=== PATIENT | male | born 1950 | race Caucasian/White ===

== ENCOUNTER 2016-08-02 07:15 | Outpatient (CLI) | payer OTHER | END 2016-08-02 07:16 | disposition home or self-care (01) | DX: R73.01 Impaired fasting glucose (principal); E78.5 Hyperlipidemia, unspecified; Z12.5 Encounter for screening for malignant neoplasm of prostate; R06.09 Other forms of dyspnea; F41.8 Other specified anxiety disorders; I10 Essential (primary) hypertension ==

== ENCOUNTER 2016-12-17 11:44 | Emergency (ER) | payer OTHER ==
--- NOTE | 2016-12-17 12:25 | ED Physician Documentation ---
PD HPI LOWER EXT INJURY - Stated complaint Stated Complaint: RT LEG SWELLING,PX - Chief complaint Chief Complaint: Wound - History obtained from History obtained from: Patient - History of Present Illness PD HPI LOW EXT INJURY LOCATION: Right, Lower leg Type of injury: Other (has abrasion, superficial lac about a week ago and was healing slowly, now with redness and some swelling to it for couple of days. Mild clear draiange.) Where injury occurred: Home Timing - duration: Days Timing - details: Gradual onset, Still present Worsened by: Palpating Associated symptoms: Swelling, Discolored (reddened). No: Weakness, Numbness Similar symptoms before: Has not had sx before Recently seen: Not recently seen Review of Systems Constitutional: denies: Fever, Chills GI: denies: Nausea, Vomiting PD PAST MEDICAL HISTORY - Past Medical History Cardiovascular: Hypertension Endocrine/Autoimmune: Type 2 diabetes Psych: Depression - Past Surgical History Past Surgical History: Yes - Present Medications Home Medications: Ambulatory Orders Medication Instructions Recorded Confirmed Aspirin [Aspir 81] 81 mg PO DAILY 07/26/13 12/17/16 Felodipine [Felodipine ER] 5 mg PO DAILY 07/26/13 12/17/16 Fluoxetine HCl [Sarafem] 20 mg PO DAILY 07/26/13 12/17/16 Metoprolol Tartrate 25 mg PO DAILY 07/26/13 12/17/16 Trazodone HCl 50 mg PO HS 07/26/13 12/17/16 Triamterene/Hydrochlorothiazid 0.5 each PO DAILY 07/26/13 12/17/16 [Triamterene-Hctz 37.5-25 mg Tb] Gabapentin 600 mg PO BID 06/30/16 12/17/16 Mupirocin 1 applic TP TID #15 oint...g. 12/17/16 Sulfamethox/Trimeth 800/160 1 each PO BID #14 tablet 12/17/16 [Bactrim Ds 800/160] - Allergies Allergies/Adverse Reactions: Allergies Allergy/AdvReac Type Severity Reaction Status Date / Time No Known Drug Allergies Allergy Verified 12/17/16 11:53 - Social History Does the pt smoke?: No Smoking Status: Never smoker Does the pt drink ETOH?: Yes Does the pt have substance abuse?: No - Immunizations Immunizations are current?: Yes PD ED PE NORMAL - Vitals Vital signs reviewed: Yes - General General: Alert and oriented X 3, No acute distress, Well developed/nourished - Derm Derm: Normal color, Warm and dry - Extremities Extremities: No edema, No calf tenderness / cord, Other (right lower leg anterolaterally with superficial lac/ulceration about 1 cm with redness and local swelling. Faint clear yellow drainage. No fluid under skin. ) - Neuro Neuro: No motor deficit, No sensory deficit Results - Vitals Vitals: Oxygen O2 Source Room air - Labs Labs: Microbiology 12/17/16 12:32 Wound Culture - Preliminary Leg - Right PD MEDICAL DECISION MAKING - ED course Complexity details: considered differential, d/w patient Departure - Departure Disposition: Home, Self Care Clinical Impression: Wound infection Condition: Stable Record reviewed to determine appropriate education?: Yes Instructions: ED Staph Infec Abx Tx Only Follow-Up: Nico Kinsey MD [Primary Care Provider] - Prescriptions: Sulfamethox/Trimeth 800/160 [Bactrim Ds 800/160] 1 each PO BID #14 tablet Mupirocin 1 applic TP TID #15 oint...g. Comments: Continue usual medications. Clean the wound 2-3 times a day with soap and water and apply mupirocin ointment topically. Bactrim twice daily for a week oral anabiotic. Tylenol or ibuprofen as needed for pain. Elevate and rest the leg when you are able. Activity is okay otherwise. Recheck if not improved over the next few days. Discharge Date/Time: 12/17/16 13:02
[2016-12-17] MEDS ORDERED: SULFAMETH/TRIMETH DS 800/160 MG TABLET PO STA (12:40)
[2016-12-17] MEDS ORDERED: MUPIROCIN 2% OINT 1 GM TOP STA (12:40)
[2016-12-17] MEDS ORDERED: MUPIROCIN 2% OINT 1 GM ONE (12:46)
[2016-12-17] MEDS ORDERED: SULFAMETH/TRIMETH DS 800/160 MG TABLET PO ONE (12:46)
[2016-12-17 13:08] VITALS: BP 124/75
== END 2016-12-17 13:02 | disposition home or self-care (01) ==
LOC: ED 11:44
DX: S81.812D Laceration without foreign body, left lower leg, subsequent encounter (principal); L08.9 Local infection of the skin and subcutaneous tissue, unspecified; X58.XXXD Exposure to other specified factors, subsequent encounter; I10 Essential (primary) hypertension; E11.9 Type 2 diabetes mellitus without complications; Z79.82 Long term (current) use of aspirin
CPT/HCPCS: 87070; 87205; 99283; A9270

== ENCOUNTER 2017-07-07 08:00 | Emergency (ER) | payer MEDICARE, BC ==
[2017-07-07] MEDS ORDERED: SODIUM CHLORIDE 0.9% 1,000 ML IV ONE (08:27)
[2017-07-07] MEDS ORDERED: ONDANSETRON 4 MG/2 ML VIAL IVP STA (08:27)
--- NOTE | 2017-07-07 08:29 | ED Physician Documentation ---
PD HPI NVD - Stated complaint Stated Complaint: VOMITING,DIARRHEA - Chief complaint Chief Complaint: Abd Pain - History obtained from History obtained from: Patient, Family - History of Present Illness Timing - onset: Enter time (0200), Last night Timing - duration: Hours Timing - details: Gradual onset, Still present Associated symptoms: Abdominal pain. No: Fever, Chest pain, Hematemesis Contributing factors: Diabetes Improved by: Laying still Similar symptoms before: Diagnosis (gastroenteritis) Recently seen: Not recently seen - Additonal information Additional information: 66-year-old male with type 2 diabetes went out to a restaurant yesterday evening at dinner with his and at about 2 AM he began to develop malaise and eventually began to vomit and have diarrhea. He has had multiple episodes of vomiting and has a bit of abdominal wall pain from the vomiting. He indicates that he was feeling entirely well prior to going out to eat and he also indicates that he has had diabetes and was treated at one point with medication he lost weight his A1c improved his been off of medicine and is now begin to gain some weight again. He does not do testing at home Review of Systems Constitutional: reports: Myalgias, Fatigue. denies: Fever, Chills Ears: denies: Ear pain Nose: denies: Rhinorrhea / runny nose, Congestion Throat: denies: Sore throat Cardiac: denies: Chest pain / pressure, Palpitations Respiratory: denies: Dyspnea, Cough GI: reports: Abdominal Pain, Nausea, Vomiting, Diarrhea : denies: Dysuria, Frequency Skin: denies: Rash Musculoskeletal: denies: Neck pain, Back pain, Extremity pain Neurologic: denies: Generalized weakness, Focal weakness, Numbness PD PAST MEDICAL HISTORY - Past Medical History Cardiovascular: Hypertension Endocrine/Autoimmune: Type 2 diabetes Psych: Depression - Past Surgical History Past Surgical History: Yes - Present Medications Home Medications: Ambulatory Orders Medication Instructions Recorded Confirmed Aspirin [Aspir 81] 81 mg PO DAILY 07/26/13 07/07/17 Felodipine [Felodipine ER] 5 mg PO DAILY 07/26/13 07/07/17 Fluoxetine HCl [Sarafem] 20 mg PO DAILY 07/26/13 07/07/17 Metoprolol Tartrate 25 mg PO DAILY 07/26/13 07/07/17 Trazodone HCl 50 mg PO HS 07/26/13 07/07/17 Triamterene/Hydrochlorothiazid 0.5 each PO DAILY 07/26/13 07/07/17 [Triamterene-Hctz 37.5-25 mg Tb] Gabapentin 600 mg PO BID 06/30/16 07/07/17 Mupirocin 1 applic TP TID #15 oint...g. 12/17/16 07/07/17 Ondansetron Odt [Zofran] 4 mg TL Q6H PRN #10 tablet 07/07/17 - Allergies Allergies/Adverse Reactions: Allergies Allergy/AdvReac Type Severity Reaction Status Date / Time No Known Drug Allergies Allergy Verified 07/07/17 08:07 - Social History Does the pt smoke?: No Smoking Status: Never smoker Does the pt drink ETOH?: Yes Does the pt have substance abuse?: No - Immunizations Immunizations are current?: Yes PD ED PE NORMAL - Vitals Vital signs reviewed: Yes (Hypertensive) - General General: Alert and oriented X 3, Well developed/nourished, Other (carroter tone of feeling ill) - HEENT HEENT: Atraumatic, PERRL, EOMI, Other (parched mucous membranes. ) - Neck Neck: Supple, no meningeal sign, No bony TTP - Cardiac Cardiac: RRR, No murmur - Respiratory Respiratory: No respiratory distress, Clear bilaterally - Abdomen Abdomen: Normal bowel sounds, Soft, Other (doughy and non-tender.) - Back Back: No CVA TTP, No spinal TTP - Derm Derm: Normal color, Warm and dry, No rash - Extremities Extremities: No deformity, No edema - Neuro Neuro: No motor deficit, No sensory deficit Eye Opening: Spontaneous Motor: Obeys Commands Verbal: Oriented GCS Score: 15 - Psych Psych: Normal mood, Normal affect Results - Vitals Vitals: Vital Signs - 24 hr 07/07/17 07/07/17 08:04 09:58 Temperature 36.6 C 37.4 C Heart Rate 91 88 Respiratory 18 16 Rate Blood Pressure 151/94 H 132/80 H O2 Saturation 95 94 Oxygen O2 Source Room air - Labs Labs: Laboratory Tests 07/07/17 07/07/17 07/07/17 08:30 08:30 08:30 WBC 13.5 H RBC 5.20 Hgb 16.4 Hct 47.2 MCV 90.8 MCH 31.5 H MCHC 34.7 RDW 12.6 Plt Count 158 MPV 8.7 Neut # 12.0 H Lymph # 0.9 L [place] # 0.6 Eos # 0.1 Baso # 0.0 Absolute Nucleated RBC 0.00 Nucleated RBC % 0.0 Sodium 138 Potassium 3.9 Chloride 100 L Carbon Dioxide 24 Anion Gap 14.0 H BUN 25 H Creatinine 1.0 Estimated GFR (MDRD) 75 L Glucose 217 H Lactic Acid Calcium 8.6 Total Bilirubin 0.7 AST 42 ALT 60 Alkaline Phosphatase 60 Troponin I < 0.04 Total Protein 7.7 Albumin 4.2 Globulin 3.5 Albumin/Globulin Ratio 1.2 Lipase 30 07/07/17 08:30 WBC RBC Hgb Hct MCV MCH MCHC RDW Plt Count MPV Neut # Lymph # [place] # Eos # Baso # Absolute Nucleated RBC Nucleated RBC % Sodium Potassium Chloride Carbon Dioxide Anion Gap BUN Creatinine Estimated GFR (MDRD) Glucose Lactic Acid 1.9 Calcium Total Bilirubin AST ALT Alkaline Phosphatase Troponin I Total Protein Albumin Globulin Albumin/Globulin Ratio Lipase Procedures - IVC sono (time) 0830 Bedside IVC sono: IVC measures (cm) (1.12), IVC collapsed c insp (cm) (complete) , Dehydration (est. 1.5 liters down) PD MEDICAL DECISION MAKING - ED course Complexity details: reviewed old records, reviewed results, re-evaluated patient , considered differential, d/w patient, d/w family ED course: 66-year-old diabetic male comes to the emergency department with acute gastroenteritis possibly related to food exposure appears moderately dehydrated on interrogation of the inferior vena cava and has elevated blood glucose. IV saline and Zofran are begun Departure - Departure Disposition: 01 Home, Self Care Clinical Impression: Gastroenteritis Condition: Stable Instructions: ED Food Poison Or Gastroenteritis Follow-Up: Nico Kinsey MD [Primary Care Provider] - Prescriptions: Ondansetron Odt [Zofran] 4 mg TL Q6H PRN #10 tablet PRN Reason: Nausea / Vomiting
[2017-07-07 08:42] LABS: BASOPHILS % (AUTO) 0.1 %; EOSINOPHILS # (AUTO) 0.1 10^3/uL (0.0-0.7); EOSINOPHILS % (AUTO) 0.5 %; HCT - HEMATOCRIT 47.2 % (42.0-52.0); HGB - HEMOGLOBIN 16.4 g/dL (14.0-18.0); LYMPHOCYTES # (AUTO) 0.9 10^3/uL (1.5-3.5); LYMPHOCYTES % (AUTO) 6.5 %; MEAN CORPUSCULAR HEMOGLOBIN 31.5 pg (27.0-31.0); MEAN CORPUSCULAR HGB CONC 34.7 g/dL (32.0-36.0); MEAN CORPUSCULAR VOLUME 90.8 fL (80.0-94.0); MEAN PLATELET VOLUME 8.7 fL (7.4-11.4); MONOCYTES # (AUTO) 0.6 10^3/uL (0.0-1.0); MONOCYTES % (AUTO) 4.3 %; NEUTROPHILS % (AUTO) 88.6 %; RED CELL DISTRIBUTION WIDTH 12.6 % (12.0-15.0); UNCORRECTED WHITE BLOOD COUNT 13.5 x10^3/uL; WHITE BLOOD COUNT 13.5 x10^3/uL (4.8-10.8)
[2017-07-07 08:55] LABS: ALBUMIN/GLOBULIN RATIO 1.2 (1.0-2.2); BILIRUBIN,TOTAL 0.7 mg/dL (0.2-1.0); CALCIUM 8.6 mg/dL (8.5-10.3); POTASSIUM 3.9 mmol/L (3.5-5.0); TOTAL PROTEIN 7.7 g/dL (6.7-8.2)
[2017-07-07 09:59] VITALS: BP 132/80
[2017-07-07] MEDS ORDERED: MAG HYDROX/AL HYDROX/SIMETH 30 ML UDC PO STA (10:22)
[2017-07-07 10:50] LABS: BILIRUBIN,URINE NEGATIVE (NEGATIVE)
[2017-07-07 10:51] LABS: UA CHARGE (STRIP ONLY) YES; UR CULTURE IF IND NOT INDICATED
== END 2017-07-07 10:32 | disposition home or self-care (01) ==
LOC: ED 08:00
DX: K52.9 Noninfective gastroenteritis and colitis, unspecified (principal); E11.9 Type 2 diabetes mellitus without complications; I10 Essential (primary) hypertension; Z79.82 Long term (current) use of aspirin
CPT/HCPCS: 36415; 80053; 81003; 83605; 83690; 84484; 85025; 96361; 96374; 99283; 99284; A9270; 81001; 87086

== ENCOUNTER 2017-09-06 08:00 | Outpatient (CLI) | payer MEDICARE, BC ==
[2017-09-06 13:45] LABS: BASOPHILS % (AUTO) 0.6 %; EOSINOPHILS # (AUTO) 0.1 10^3/uL (0.0-0.7); EOSINOPHILS % (AUTO) 1.5 %; HGB - HEMOGLOBIN 15.9 g/dL (14.0-18.0); LYMPHOCYTES # (AUTO) 2.1 10^3/uL (1.5-3.5); LYMPHOCYTES % (AUTO) 32.7 %; MEAN CORPUSCULAR HEMOGLOBIN 31.8 pg (27.0-31.0); MEAN CORPUSCULAR HGB CONC 34.9 g/dL (32.0-36.0); MEAN CORPUSCULAR VOLUME 91.2 fL (80.0-94.0); MEAN PLATELET VOLUME 8.7 fL (7.4-11.4); MONOCYTES # (AUTO) 0.7 10^3/uL (0.0-1.0); MONOCYTES % (AUTO) 10.8 %; NEUTROPHILS # (AUTO) 3.4 10^3/uL (1.5-6.6); NEUTROPHILS % (AUTO) 54.4 %; PLT - PLATELET COUNT 151 10^3/uL (130-450); RED CELL DISTRIBUTION WIDTH 13.2 % (12.0-15.0); WHITE BLOOD COUNT 6.3 x10^3/uL (4.8-10.8)
[2017-09-06 13:57] LABS: ALBUMIN 4.2 g/dL (3.2-5.5); ALBUMIN/GLOBULIN RATIO 1.4 (1.0-2.2); ALKALINE PHOSPHATASE 58 IU/L (42-121); ALT ALANINE AMINOTRANSFERASE 68 IU/L (10-60); AST ASPARTATE AMINOTRANSFERASE 42 IU/L (10-42); BILIRUBIN,TOTAL 0.9 mg/dL (0.2-1.0); BUN - BLOOD UREA NITROGEN 18 mg/dL (6-20); CARBON DIOXIDE - CO2 25 mmol/L (21-32); CHLORIDE 98 mmol/L (101-111); CHOL/HDL RATIO 4.7 (<5.0); CHOLESTEROL 184 mg/dL; GFR - MDRD 75 (>89); GLUCOSE 149 mg/dL (70-100); HDL CHOLESTEROL 39 mg/dL; LDL CHOLESTEROL,CALCULATED 115 mg/dL; LDL/HDL RATIO 2.9 (<3.6); SODIUM 134 mmol/L (135-145); TOTAL PROTEIN 7.3 g/dL (6.7-8.2); VLDL CHOLESTEROL 30 mg/dL
[2017-09-06 14:10] LABS: HB2 TOTAL 17.9 g/dL; HEMOGLOBIN A1C 1.02 g/dL; HEMOGLOBIN A1C % 7.4 % (4.6-6.2)
== END 2017-09-06 08:01 | disposition home or self-care (01) ==
LOC: LAB.WCP 08:00
PROVIDERS: ATTEND Family Medicine
DX: G62.9 Polyneuropathy, unspecified (principal); R73.01 Impaired fasting glucose; E78.5 Hyperlipidemia, unspecified; Z12.5 Encounter for screening for malignant neoplasm of prostate; F41.8 Other specified anxiety disorders
CPT/HCPCS: 36415; 80053; 80061; 82043; 83036; 85025; G0103; 83721; 84153

== ENCOUNTER 2018-01-17 08:00 | Outpatient (CLI) | payer MEDICARE, BC ==
[2018-01-17 12:41] LABS: ALBUMIN 4.1 g/dL (3.2-5.5); ALBUMIN/GLOBULIN RATIO 1.3 (1.0-2.2); BILIRUBIN,TOTAL 0.7 mg/dL (0.2-1.0); CALCIUM 8.7 mg/dL (8.5-10.3); CREATININE 1.1 mg/dL (0.6-1.2); TOTAL PROTEIN 7.3 g/dL (6.7-8.2)
[2018-01-17 13:27] LABS: HB2 TOTAL 17.5 g/dL; HEMOGLOBIN A1C 0.87 g/dL; HEMOGLOBIN A1C % 6.7 % (4.6-6.2)
== END 2018-01-17 23:59 | disposition home or self-care (01) ==
LOC: LAB.WCP 08:00
PROVIDERS: ATTEND Family Medicine
DX: E11.9 Type 2 diabetes mellitus without complications (principal); I10 Essential (primary) hypertension
CPT/HCPCS: 36415; 80053; 83036

== ENCOUNTER 2018-03-17 09:48 | Outpatient (CLI) | payer MEDICARE, BC ==
--- NOTE | 2018-03-17 21:40 | MRI Report ---
Reason: NUMBNESS OF FACE, PARESTHESIA Procedure Date: 03/17/2018 Accession Number: [id number] / [id number] Procedure: MRI - Brain W/O CPT Code: FULL RESULT: EXAM: MRI BRAIN WITHOUT CONTRAST EXAM DATE: 03/17/2018 11:11 AM. CLINICAL HISTORY: Numbness of the face COMPARISON: None. TECHNIQUE: Multiplanar, multisequence T1-weighted and fluid-sensitive MR sequences of the brain were performed. Sequences optimized for routine evaluation. Other: This study was protocoled on site using the institution's protocol.. IV Contrast: None. FINDINGS: The diffusion-weighted images are normal. There is no evidence of acute or subacute cerebral infarction. The corpus callosum is of normal size and configuration. The pituitary and sella are normal. The craniocervical junction is normal. The cerebral vascular flow voids are patent. The FLAIR images demonstrate multiple punctate and confluent areas of T2 hyperintensity within the subcortical, deep, and periventricular white matter. This is consistent with a mild to moderate degree of chronic small vessel ischemia. There is enlargement of the lateral ventricles and the third ventricle but not out of proportion to the enlargement of the cerebral sulci. This is consistent with a mild degree of generalized volume loss. The T2* sequence is normal. There is no evidence of subacute or chronic hemorrhage. Cerebral volume and ventricular size are normal. IMPRESSION: 1. There is no evidence of acute or subacute cerebral infarction. 2. There is mild to moderate degree of chronic small vessel ischemia and mild degree of generalized volume loss. 3. There is no evidence of brain mass.
== END 2018-03-17 09:49 | disposition home or self-care (01) ==
LOC: DI 09:48
PROVIDERS: ATTEND Family Medicine
DX: R20.0 Anesthesia of skin (principal); R20.2 Paresthesia of skin
CPT/HCPCS: 70551

== ENCOUNTER 2018-08-22 08:00 | Outpatient (CLI) | payer MEDICARE, BC ==
[2018-08-22 13:26] LABS: BASOPHILS % (AUTO) 0.4 %; EOSINOPHILS # (AUTO) 0.1 10^3/uL (0.0-0.7); EOSINOPHILS % (AUTO) 1.3 %; LYMPHOCYTES # (AUTO) 1.9 10^3/uL (1.5-3.5); LYMPHOCYTES % (AUTO) 32.8 %; MEAN CORPUSCULAR HEMOGLOBIN 31.8 pg (27.0-31.0); MEAN CORPUSCULAR HGB CONC 34.4 g/dL (32.0-36.0); MEAN CORPUSCULAR VOLUME 92.4 fL (80.0-94.0); MONOCYTES # (AUTO) 0.5 10^3/uL (0.0-1.0); MONOCYTES % (AUTO) 8.8 %; NEUTROPHILS # (AUTO) 3.3 10^3/uL (1.5-6.6); NEUTROPHILS % (AUTO) 56.7 %; PLT - PLATELET COUNT 186 10^3/uL (130-450); RED BLOOD COUNT 5.03 10^6/uL (4.70-6.10); RED CELL DISTRIBUTION WIDTH 12.7 % (12.0-15.0); WHITE BLOOD COUNT 5.9 x10^3/uL (4.8-10.8)
[2018-08-22 13:54] LABS: ALBUMIN 4.1 g/dL (3.2-5.5); ALBUMIN/GLOBULIN RATIO 1.4 (1.0-2.2); BILIRUBIN,TOTAL 0.8 mg/dL (0.2-1.0); CALCIUM 8.9 mg/dL (8.5-10.3); CREATININE 0.8 mg/dL (0.6-1.2); TOTAL PROTEIN 7.1 g/dL (6.7-8.2)
[2018-08-22 14:54] LABS: HB2 TOTAL 17.2 g/dL; HEMOGLOBIN A1C 0.85 g/dL; HEMOGLOBIN A1C % 6.7 % (4.6-6.2)
== END 2018-08-22 23:59 | disposition home or self-care (01) ==
LOC: LAB.WCP 08:00
PROVIDERS: ATTEND Family Medicine
DX: I10 Essential (primary) hypertension (principal); E11.9 Type 2 diabetes mellitus without complications
CPT/HCPCS: 36415; 80053; 82043; 83036; 85025

== ENCOUNTER 2019-01-28 15:05 | Outpatient (CLI) | payer MEDICARE, BC ==
--- NOTE | 2019-01-29 11:38 | MRI Report ---
Reason: DERANGEMENT, INTERNAL, KNEE NOS Procedure Date: 01/28/2019 Accession Number: [id number] / [id number] Procedure: MRI - Knee LT W/O CPT Code: FULL RESULT: EXAM: LEFT KNEE MRI WITHOUT CONTRAST EXAM DATE: 01/28/2019 03:53 PM. CLINICAL HISTORY: Derangement, internal, knee NOS. History of arthroscopic knee surgery 2007. No reinjury. COMPARISON: KNEE 3 VIEW LT 01/21/2019 3:59 PM. TECHNIQUE: Multiplanar, multisequence T1-weighted and fluid-sensitive sequences of the knee without contrast. Other: None. FINDINGS: Bones: No fractures or subluxations. No marrow edema. No bone lesions. Small spur medial tibial plateau. Small spur on lateral aspect of medial femoral condyle intercondylar fossa. Articular Cartilage: Moderate focal chondromalacia trochlear groove. Moderate chondromalacia medial femoral condyle. Medial Meniscus: Diminutive medial meniscus body consistent with history of prior arthroscopic surgery. The medial meniscus is without intrameniscal fluid signal to suggest re-tear. Lateral Meniscus: The lateral meniscus is intact. Cruciate Ligaments: The anterior and posterior cruciate ligaments are intact. Collateral Ligaments: The medial collateral and lateral collateral ligamentous structures are intact. Tendons: The quadriceps, patellar, semimembranosus, and popliteus tendons are unremarkable. Musculature: No edema or fatty atrophy. Other: No effusion. No popliteal cyst. No loose bodies. The medial and lateral retinacula are intact. Mild prepatellar subcutaneous edema. Anterior lateral prepatellar focal subcutaneous fluid collection 1.5 x 0.5 cm in transverse dimension and 1 cm in height consistent with small focal prepatellar bursitis. Susceptibility effect soft tissue anterior lateral left knee at the lateral margin of the patellar tendon likely secondary to prior injury with no corresponding metallic foreign body identified on the lateral x-ray left knee 01/21/2019. IMPRESSION: 1. Negative for meniscus tear or internal derangement. 2. Moderate chondromalacia trochlear groove and moderate chondromalacia medial femoral condyle. RADIA
== END 2019-01-28 15:06 | disposition home or self-care (01) ==
LOC: DI 15:05
PROVIDERS: ATTEND Family Medicine
DX: M94.262 Chondromalacia, left knee (principal); M23.90 Unspecified internal derangement of unspecified knee

== ENCOUNTER 2019-08-05 14:45 | Emergency (ER) | payer MEDICARE, BC ==
[2019-08-05] MEDS ORDERED: HYDROcod/ACETAM 5/325 MG TABLET PO STA (15:43)
[2019-08-05] MEDS ORDERED: BUFFERED LIDOCAINE 10 ML SYRINGE SUBQ STA (15:43)
--- NOTE | 2019-08-05 15:46 | ED Physician Documentation ---
PD HPI HEAD INJURY - Stated complaint Stated Complaint: CHIN LAC - Chief complaint Chief Complaint: Laceration - History obtained from History obtained from: Patient - History of Present Illness Mechanism of head injury: Blow (He was working at home and had a 2 x 4 on a table saw and it kicked back and hit him in the chin and he has moderate to severe pain of the mandible and a laceration there. Tetanus is up-to-date. No headache or loss of consciousness.) Review of Systems Constitutional: reports: Reviewed and negative Nose: denies: Rhinorrhea / runny nose, Congestion Throat: denies: Sore throat Cardiac: denies: Chest pain / pressure, Palpitations PD PAST MEDICAL HISTORY - Past Medical History Past Medical History: Yes Cardiovascular: Hypertension, High cholesterol Respiratory: None Endocrine/Autoimmune: Type 2 diabetes GI: None : None Psych: Depression Musculoskeletal: None Other Past Medical History: Neuropathy in left lower extremity - Past Surgical History Past Surgical History: Yes - Present Medications Home Medications: Ambulatory Orders Medication Instructions Recorded Confirmed Aspirin [Aspir 81] 81 mg PO DAILY 07/26/13 08/05/19 Felodipine [Felodipine ER] 5 mg PO DAILY 07/26/13 08/05/19 Fluoxetine HCl [Sarafem] 20 mg PO DAILY 07/26/13 08/05/19 Metoprolol Tartrate 10 - 12.5 mg PO DAILY 07/26/13 08/05/19 Trazodone HCl 50 mg PO HS 07/26/13 08/05/19 Triamterene/Hydrochlorothiazid 0.5 each PO DAILY 07/26/13 07/07/17 [Triamterene-Hctz 37.5-25 mg Tb] Gabapentin 300 mg PO DAILY 06/30/16 08/05/19 Mupirocin 1 applic TP TID #15 oint...g. 12/17/16 07/07/17 Ondansetron Odt [Zofran] 4 mg TL Q6H PRN #10 tablet 07/07/17 Aspirin [Aspirin EC] 81 mg PO DAILY 08/05/19 08/05/19 Hydrocodone/Acetaminophen 1 - 2 each PO Q6H PRN #14 tablet 08/05/19 [Hydrocodon-Acetaminophen 5-325] Pravastatin [Pravachol] 20 mg PO DAILY 01/15/20 01/15/20 metFORMIN [Glucophage] 500 mg PO DAILY 08/05/19 08/05/19 - Allergies Allergies/Adverse Reactions: Allergies Allergy/AdvReac Type Severity Reaction Status Date / Time No Known Drug Allergies Allergy Verified 07/07/17 08:07 - Social History Does the pt smoke?: No Smoking Status: Never smoker Does the pt drink ETOH?: Yes Does the pt have substance abuse?: No - Immunizations Immunizations are current?: Yes PD ED PE NORMAL - Vitals Vital signs reviewed: Yes - General General: Alert and oriented X 3, No acute distress - HEENT HEENT: PERRL, EOMI, Other (There is a oblique laceration in the submental area to the left of midline measuring 3 cm. The mandible is tender especially on the right up to the TMJ. There is no deformity. He has pain with opening closing of the mouth but does not seem to have too much in the way of limited range of motion.) - Neck Neck: Supple, no meningeal sign, No bony TTP - Neuro Neuro: Alert and oriented X 3, No motor deficit, No sensory deficit, Normal speech - Psych Psych: Normal mood, Normal affect Results - Vitals Vitals: Vital Signs - 24 hr 08/05/19 15:22 Temperature 37.1 C Heart Rate 63 Respiratory 18 Rate Blood Pressure 113/69 O2 Saturation 95 Oxygen O2 Source Room air - Rads (name of study) facial bones CT Radiology: EMP read contemporaneously (no frx) Procedures - Laceration (location) Chin Length in cm: 3 Wound type: Linear Neurovascular status: Sensory intact, Motor intact, Vascular intact Anesthesia: Lidocaine 1%, With bicarb Wound Preparation: Irrigated copiously NS Skin layer closure: Nylon, Interrupted, Size #-0 - enter number (4-0), Sutures - enter # (6) Other: Tetanus UTD Complexity: Simple Departure - Departure Disposition: 01 Home, Self Care Clinical Impression: Laceration Facial contusion Qualifiers: Encounter type: initial encounter Qualified Code(s): S00.83XA - Contusion of other part of head, initial encounter Condition: Good Record reviewed to determine appropriate education?: Yes Instructions: ED Laceration Facial Sutr Tape Prescriptions: Hydrocodone/Acetaminophen [Hydrocodon-Acetaminophen 5-325] 1 - 2 each PO Q6H PRN #14 tablet PRN Reason: pain Comments: Come back for any signs of infection which would include: Redness, swelling, drainage, increased pain, or fevers. You can wash it soap and water. Keep it covered and moist with bacitracin ointment which is available over the counter; avoid neosporin. Follow-up with your physician in 7-10 days for suture removal.
--- NOTE | 2019-08-05 16:57 | CT Report ---
Reason: mandibular injury Procedure Date: 08/05/2019 Accession Number: [id number] / [id number] Procedure: CT - MAXILLOFACIAL WO CPT Code: Final Report FULL RESULT: EXAM: CT MAXILLOFACIAL WITHOUT CONTRAST EXAM DATE: 08/05/2019 04:01 PM. CLINICAL HISTORY: Mandibular injury. COMPARISONS: HEAD W/O 07/26/2013 11:00 AM. TECHNIQUE: Thin-section axial images were acquired of the face without contrast. Post-processing: Coronal and sagittal reformats. Other: None. In accordance with CT protocol optimization, one or more of the following dose reduction techniques were utilized for this exam: automated exposure control, adjustment of mA and/or KV based on patient size, or use of iterative reconstructive technique. FINDINGS: Soft Tissue: There is a laceration injury with subcutaneous edema of the left chin. There several bubbles of soft tissue gas. There is no radiopaque foreign body. No lymphadenopathy. Orbits: Symmetric and unremarkable. Bones: No fracture or destructive bony abnormality. There is degenerative disk disease of the cervical spine greatest at C5-C6. Temporomandibular Joints: Temporomandibular joint appears in satisfactory alignment. Sinuses: There is bilateral maxillary sinus mucosal thickening. The frontal, ethmoid and sphenoid sinuses are clear. The mastoid sinuses are clear. Other: None. IMPRESSION: 1. Laceration injury with subcutaneous edema of the left chin. 2. No acute fracture. RADIA
[2019-08-05 17:07] VITALS: BP 117/65
== END 2019-08-05 17:16 | disposition home or self-care (01) ==
LOC: ED 14:45
DX: S01.81XA Laceration without foreign body of other part of head, initial encounter (principal); S00.83XA Contusion of other part of head, initial encounter; W20.8XXA Other cause of strike by thrown, projected or falling object, initial encounter; Y93.H3 Activity, building and construction; Y92.009 Unspecified place in unspecified non-institutional (private) residence as the place of occurrence of the external cause; I10 Essential (primary) hypertension; E11.42 Type 2 diabetes mellitus with diabetic polyneuropathy; Z79.84 Long term (current) use of oral hypoglycemic drugs; Z79.82 Long term (current) use of aspirin
CPT/HCPCS: 12013; 70486; 99284; A9270

== ENCOUNTER 2020-03-29 07:23 | Outpatient (CLI) | payer MEDICARE, BC ==
[2020-03-29 12:47] LABS: BASOPHILS # (AUTO) 0.1 10^3/uL (0.0-0.1); BASOPHILS % (AUTO) 1.1 %; EOSINOPHILS # (AUTO) 0.5 10^3/uL (0.0-0.7); EOSINOPHILS % (AUTO) 7.1 %; HGB - HEMOGLOBIN 16.4 g/dL (14.0-18.0); LYMPHOCYTES # (AUTO) 1.8 10^3/uL (1.5-3.5); LYMPHOCYTES % (AUTO) 28.1 %; MEAN CORPUSCULAR HEMOGLOBIN 32.7 pg (27.0-31.0); MEAN CORPUSCULAR VOLUME 93.2 fL (80.0-94.0); MEAN PLATELET VOLUME 10.9 fL (7.4-11.4); MONOCYTES # (AUTO) 0.5 10^3/uL (0.0-1.0); MONOCYTES % (AUTO) 8.2 %; NEUTROPHILS # (AUTO) 3.5 10^3/uL (1.5-6.6); PLT - PLATELET COUNT 198 10^3/uL (130-450); RED BLOOD COUNT 5.02 10^6/uL (4.70-6.10); RED CELL DISTRIBUTION WIDTH 12.1 % (12.0-15.0); WHITE BLOOD COUNT 6.4 x10^3/uL (4.8-10.8)
[2020-03-29 13:23] LABS: ALBUMIN 4.1 g/dL (3.2-5.5); ALBUMIN/GLOBULIN RATIO 1.4 (1.0-2.2); ALKALINE PHOSPHATASE 67 IU/L (42-121); ALT ALANINE AMINOTRANSFERASE 44 IU/L (10-60); AST ASPARTATE AMINOTRANSFERASE 23 IU/L (10-42); BILIRUBIN,TOTAL 0.9 mg/dL (0.2-1.0); BUN - BLOOD UREA NITROGEN 16 mg/dL (6-20); CALCIUM 8.9 mg/dL (8.5-10.3); CARBON DIOXIDE - CO2 28 mmol/L (21-32); CHLORIDE 97 mmol/L (101-111); CHOL/HDL RATIO 4.2 (<5.0); CHOLESTEROL 172 mg/dL; CREATININE 0.8 mg/dL (0.6-1.2); GLUCOSE 309 mg/dL (70-100); HDL CHOLESTEROL 41 mg/dL; LDL CHOLESTEROL,CALCULATED 104 mg/dL; LDL/HDL RATIO 2.5 (<3.6); SODIUM 134 mmol/L (135-145); TOTAL PROTEIN 7.1 g/dL (6.7-8.2); VLDL CHOLESTEROL 27 mg/dL
[2020-03-29 13:33] LABS: HEMOGLOBIN A1c% 11.8 % (4.27-6.07)
[2020-03-29 13:39] LABS: MICROALBUM/CREATININE RATIO,UR 10.6 ug/mg (<30.0); MICROALBUMIN,URINE 3.2 mg/dL (0-300.0)
== END 2020-03-29 07:24 | disposition home or self-care (01) ==
LOC: LAB.WCP 07:23
PROVIDERS: ATTEND Family Medicine
DX: E78.5 Hyperlipidemia, unspecified (principal); E11.9 Type 2 diabetes mellitus without complications; Z12.5 Encounter for screening for malignant neoplasm of prostate; I10 Essential (primary) hypertension
CPT/HCPCS: 36415; 80053; 80061; 82043; 82570; 83036; 84443; 85025; G0103; 83721; 84153

== ENCOUNTER 2020-04-13 15:38 | Emergency (ER) | payer MEDICARE, BC ==
[2020-04-13 15:45] VITALS: BP 130/72
[2020-04-13] MEDS ORDERED: KETOROLAC 60 MG/2 ML VIAL IM STA (16:01)
--- NOTE | 2020-04-13 16:04 | ED Physician Documentation ---
PD HPI BACK PAIN - Stated complaint Stated Complaint: BACK AND LEG PAIN - Chief complaint Chief Complaint: Back Pain - History obtained from History obtained from: Patient - Additional information Additional information: 69-year-old gentleman with history of back pain presents with worse back pain over last couple of months especially bad over the last 2 days. It is in the left low back and radiates towards the left hip. It is mild to moderate at rest but severe with any motion especially twisting. He has a history of sciatica and herniated disks and this is similar. No fevers, no saddle anesthesia or incontinence. Pain radiates into the left leg but does not have any new numbness in the left leg noting that he has chronic neuropathy. Is on gabapentin currently at a dose of 300 mg twice a day and tried a couple of oxycodone which was incompletely helpful. Review of Systems Constitutional: reports: Reviewed and negative Throat: reports: Reviewed and negative Cardiac: reports: Reviewed and negative Respiratory: reports: Reviewed and negative PD PAST MEDICAL HISTORY - Past Medical History Past Medical History: Yes Cardiovascular: Hypertension, High cholesterol Respiratory: None Endocrine/Autoimmune: Type 2 diabetes GI: None : None Psych: Depression Musculoskeletal: None - Past Surgical History Past Surgical History: Yes - Present Medications Home Medications: Ambulatory Orders Medication Instructions Recorded Confirmed Aspirin [Aspir 81] 81 mg PO DAILY 07/26/13 08/05/19 Felodipine [Felodipine ER] 5 mg PO DAILY 07/26/13 08/05/19 Fluoxetine HCl [Sarafem] 20 mg PO DAILY 07/26/13 08/05/19 Metoprolol Tartrate 10 - 12.5 mg PO DAILY 07/26/13 08/05/19 Trazodone HCl 50 mg PO HS 07/26/13 08/05/19 Triamterene/Hydrochlorothiazid 0.5 each PO DAILY 07/26/13 07/07/17 [Triamterene-Hctz 37.5-25 mg Tb] Gabapentin 300 mg PO DAILY 06/30/16 08/05/19 Mupirocin 1 applic TP TID #15 oint...g. 12/17/16 07/07/17 Ondansetron Odt [Zofran] 4 mg TL Q6H PRN #10 tablet 07/07/17 Aspirin [Aspirin EC] 81 mg PO DAILY 08/05/19 08/05/19 Hydrocodone/Acetaminophen 1 - 2 each PO Q6H PRN #14 tablet 08/05/19 [Hydrocodon-Acetaminophen 5-325] Pravastatin [Pravachol] 20 mg PO DAILY 08/05/19 08/05/19 metFORMIN [Glucophage] 500 mg PO DAILY 08/05/19 08/05/19 Gabapentin [Neurontin] 2 tab PO TID #60 capsule 04/13/20 Oxycodone HCl/Acetaminophen 1 - 2 each PO Q6H PRN #14 tablet 04/13/20 [Percocet 5-325 mg Tablet] - Allergies Allergies/Adverse Reactions: Allergies Allergy/AdvReac Type Severity Reaction Status Date / Time No Known Drug Allergies Allergy Verified 04/13/20 15:46 - Social History Does the pt smoke?: No Smoking Status: Never smoker Does the pt drink ETOH?: Yes Does the pt have substance abuse?: No - Immunizations Immunizations are current?: Yes - POLST Patient has POLST: No PD ED PE NORMAL - Vitals Vital signs reviewed: Yes - General General: Alert and oriented X 3, No acute distress - Back Back: No spinal TTP - Extremities Extremities: Other (The patient has equal and normal Achilles and patellar reflexes bilaterally. Normal sensation in all areas of the legs. Patient denies saddle anesthesia. Normal strength in flexion-extension at the ankles, knees, and flexion of the hips.) - Neuro Neuro: Alert and oriented X 3, Normal speech Results - Vitals Vitals: Vital Signs - 24 hr 04/13/20 15:42 Temperature 37.0 C Heart Rate 69 Respiratory 16 Rate Blood Pressure 130/72 O2 Saturation 97 Oxygen O2 Source Room air PD MEDICAL DECISION MAKING - ED course ED course: 69-year-old gentleman with history of sciatica and back pain presents with an e xacerbation of same. Infection is considered but no fever, no progressive neurologic symptoms. Would hold steroids given history of diabetes. Departure - Departure Disposition: 01 Home, Self Care Clinical Impression: Sciatica Condition: Good Record reviewed to determine appropriate education?: Yes Instructions: ED Sciatica Prescriptions: Gabapentin [Neurontin] 2 tab PO TID #60 capsule Oxycodone HCl/Acetaminophen [Percocet 5-325 mg Tablet] 1 - 2 each PO Q6H PRN #14 tablet PRN Reason: pain Comments: Talk with Dr. Langrock about MRI depending on when your last one was. Return for new or worsening symptoms. Especially numbness around your privates or incontinence of bowel or bladder. Do not drink or drive while taking prescription narcotics or the higher dose of gabapentin. Both are sedating.
== END 2020-04-13 16:19 | disposition home or self-care (01) ==
LOC: ED 15:38
DX: M54.42 Lumbago with sciatica, left side (principal); E11.40 Type 2 diabetes mellitus with diabetic neuropathy, unspecified; Z79.84 Long term (current) use of oral hypoglycemic drugs; I10 Essential (primary) hypertension; Z79.82 Long term (current) use of aspirin
CPT/HCPCS: 96372; 99283

== ENCOUNTER 2020-04-27 08:09 | Outpatient (CLI) | payer MEDICARE, BC ==
--- NOTE | 2020-04-27 09:31 | MRI Report ---
PROCEDURE: Lumbar Spine W/O INDICATIONS: LEFT SCIATICA TECHNIQUE: Noncontrast sagittal T1 spin echo and T2 fast echo, sagittal STIR, axial T1 and T2 fast spin echo thr ough the lumbar spine. In cases with scoliosis, additional coronal T2 fast spin echo may be performe d. COMPARISON: Plain films of the lumbar spine dated 02.24.18 FINDINGS: Image quality: Excellent. Alignment and Curvature: 5 lumbar type vertebral bodies are present by plain film. Loss of normal lum bar lordosis. Mild grade 1 retrolisthesis of L3 on L4, L4 on L5, and L5 on S1. Bone Marrow: Marrow is of normal overall signal. No acute vertebral body compression fractures. Mi ld reactive signal within the end plates adjacent to the L1-L2, L2-L3, L3-L4, L4-L5, and L5-S1 interv ertebral discs. Spinal Cord: Conus medullaris terminates at the mid T12 level. Visualized cord demonstrates normal signal and size. Paraspinous Soft Tissues: No paravertebral masses. T12-L1: Mild disc desiccation. No significant canal, nor foraminal stenosis. L1-L2: Mild disc desiccation. No significant canal, nor foraminal stenosis. L2-L3: Mild disc height loss and desiccation. Mild facet and ligament flavum hypertrophy. Mild epi dural lipomatosis. No significant canal stenosis. Mild bilateral foraminal stenosis. L3-L4: Moderate disc desiccation. Mild diffuse disc bulge. Mild facet and ligament flavum hypertrop hy. Mild epidural lipomatosis. Mild canal stenosis. Mild bilateral foraminal stenosis. L4-L5: Moderate disc height loss and desiccation. Mild diffuse disc bulge with superimposed left po sterolateral protrusion. Mild bilateral facet and ligament flavum hypertrophy. Mild epidural lipomato sis. Mild canal stenosis. Mild bilateral foraminal stenosis. Compression of the left L5 nerve root wi thin the lateral recess. L5-S1: Moderate disc height loss and desiccation. Mild diffuse disc bulge. Mild facet and ligament flavum hypertrophy. Mild canal stenosis. Mild bilateral foraminal stenosis. IMPRESSION: 1. Multilevel degenerative disc and facet disease, in addition to epidural lipomatosis and ligamentum flavum hypertrophy. 2. Mild multilevel canal and foraminal stenoses. 3. Left lateral recess stenosis at L4-L5 associated with left L5 nerve root compression. Recommend co rrelation with clinical symptoms to ascertain relevance of this finding. Reviewed by: Gloria Ricci MD on 04/27/2020 9:30 AM PDT Approved by: Gloria Ricci MD on 04/27/2020 9:30 AM PDT Station ID: [id number]
== END 2020-04-27 08:10 | disposition home or self-care (01) ==
LOC: DI 08:09
PROVIDERS: ATTEND Family Medicine
DX: M51.17 Intervertebral disc disorders with radiculopathy, lumbosacral region (principal); M48.07 Spinal stenosis, lumbosacral region; E88.2 Lipomatosis, not elsewhere classified
CPT/HCPCS: 72148

== ENCOUNTER 2020-05-16 08:33 | Outpatient (CLI) | payer MEDICARE, BC ==
[2020-05-16 12:26] LABS: CALCIUM 8.7 mg/dL (8.5-10.3); CREATININE 0.9 mg/dL (0.6-1.2)
[2020-05-16 12:52] LABS: CREATININE,URINE 316.4 mg/dL; MICROALBUM/CREATININE RATIO,UR 3.8 ug/mg (<30.0); MICROALBUMIN,URINE 1.2 mg/dL (0-300.0)
[2020-05-16 13:24] LABS: HEMOGLOBIN A1c% 9.5 % (4.27-6.07)
== END 2020-05-16 23:59 | disposition home or self-care (01) ==
LOC: LAB.WCP 08:33
PROVIDERS: ATTEND Family Medicine
DX: E11.9 Type 2 diabetes mellitus without complications (principal)
CPT/HCPCS: 36415; 80048; 82043; 82570; 83036

== ENCOUNTER 2020-06-24 14:49 | Outpatient (CLI) | payer MEDICARE, BC ==
[2020-06-24 18:47] LABS: BASOPHILS # (AUTO) 0.1 10^3/uL (0.0-0.1); BASOPHILS % (AUTO) 0.7 %; EOSINOPHILS # (AUTO) 0.1 10^3/uL (0.0-0.7); EOSINOPHILS % (AUTO) 1.2 %; HGB - HEMOGLOBIN 15.6 g/dL (14.0-18.0); LYMPHOCYTES # (AUTO) 2.5 10^3/uL (1.5-3.5); MEAN PLATELET VOLUME 10.3 fL (7.4-11.4); MONOCYTES # (AUTO) 0.8 10^3/uL (0.0-1.0); MONOCYTES % (AUTO) 8.7 %; NEUTROPHILS # (AUTO) 5.2 10^3/uL (1.5-6.6); NEUTROPHILS % (AUTO) 59.9 %; PLT - PLATELET COUNT 244 10^3/uL (130-450); RED BLOOD COUNT 5.03 10^6/uL (4.70-6.10); RED CELL DISTRIBUTION WIDTH 12.5 % (12.0-15.0); WHITE BLOOD COUNT 8.6 x10^3/uL (4.8-10.8)
== END 2020-06-24 14:50 | disposition home or self-care (01) ==
LOC: LAB.N 14:49
PROVIDERS: ATTEND Physician Assistant Medical
DX: F41.9 Anxiety disorder, unspecified (principal)
CPT/HCPCS: 36415; 84443; 85025

== ENCOUNTER 2020-08-15 08:00 | Outpatient (CLI) | payer MEDICARE, BC ==
[2020-08-15 14:07] LABS: ALBUMIN 4.1 g/dL (3.2-5.5); ALBUMIN/GLOBULIN RATIO 1.4 (1.0-2.2); BILIRUBIN,TOTAL 0.5 mg/dL (0.2-1.0); CALCIUM 9.1 mg/dL (8.5-10.3); CREATININE 1.1 mg/dL (0.6-1.2)
== END 2020-08-15 23:59 | disposition home or self-care (01) ==
LOC: LAB.WCP 08:00
PROVIDERS: ATTEND Nurse Practitioner
DX: E11.9 Type 2 diabetes mellitus without complications (principal); I10 Essential (primary) hypertension
CPT/HCPCS: 36415; 80053; 83036

== ENCOUNTER 2020-09-23 15:33 | Outpatient (CLI) | payer MEDICARE, BC | END 2020-09-23 15:34 | disposition home or self-care (01) | LOC: RT 15:33 | PROVIDERS: ATTEND Orthopaedic Surgery Orthopaedic Surgery of the Spine | DX: Z01.818 Encounter for other preprocedural examination (principal) | CPT/HCPCS: 36415; 80048; 85025; 93005 ==

== ENCOUNTER 2020-09-23 15:51 | Outpatient (CLI) | payer MEDICARE, BC ==
[2020-09-23 16:12] LABS: BASOPHILS # (AUTO) 0.1 10^3/uL (0.0-0.1); BASOPHILS % (AUTO) 0.9 %; EOSINOPHILS # (AUTO) 0.2 10^3/uL (0.0-0.7); EOSINOPHILS % (AUTO) 2.4 %; HCT - HEMATOCRIT 45.6 % (42.0-52.0); HGB - HEMOGLOBIN 15.5 g/dL (14.0-18.0); LYMPHOCYTES # (AUTO) 2.9 10^3/uL (1.5-3.5); LYMPHOCYTES % (AUTO) 35.6 %; MEAN CORPUSCULAR HEMOGLOBIN 31.2 pg (27.0-31.0); MEAN CORPUSCULAR VOLUME 91.8 fL (80.0-94.0); MEAN PLATELET VOLUME 9.9 fL (7.4-11.4); MONOCYTES # (AUTO) 0.7 10^3/uL (0.0-1.0); MONOCYTES % (AUTO) 8.5 %; NEUTROPHILS # (AUTO) 4.2 10^3/uL (1.5-6.6); NEUTROPHILS % (AUTO) 52.3 %; PLT - PLATELET COUNT 229 10^3/uL (130-450); RED BLOOD COUNT 4.97 10^6/uL (4.70-6.10); RED CELL DISTRIBUTION WIDTH 12.1 % (12.0-15.0)
[2020-09-23 16:20] LABS: CALCIUM 9.1 mg/dL (8.5-10.3); CREATININE 1.1 mg/dL (0.6-1.2); POTASSIUM 3.9 mmol/L (3.5-5.0)
== END 2020-09-23 15:52 | disposition home or self-care (01) ==
LOC: LAB 15:51
PROVIDERS: ATTEND Orthopaedic Surgery Orthopaedic Surgery of the Spine
DX: Z01.812 Encounter for preprocedural laboratory examination (principal)
CPT/HCPCS: 36415; 80048; 85025

== ENCOUNTER 2020-11-17 08:00 | Outpatient (CLI) | payer MEDICARE, BC ==
[2020-11-17 18:56] LABS: ESTIMATED AVERAGE GLUCOSE 126 mg/dL (70-100)
[2020-11-17 19:13] LABS: CREATININE,URINE 87.3 mg/dL; MICROALBUM/CREATININE RATIO,UR 3.4 ug/mg (<30.0); MICROALBUMIN,URINE 0.3 mg/dL (0-300.0)
[2020-11-17 19:15] LABS: CALCIUM 9.3 mg/dL (8.5-10.3); CREATININE 0.9 mg/dL (0.6-1.2); POTASSIUM 4.1 mmol/L (3.5-5.0)
== END 2020-11-17 23:59 | disposition home or self-care (01) ==
LOC: LAB.WCP 08:00
PROVIDERS: ATTEND Family Medicine
DX: E11.9 Type 2 diabetes mellitus without complications (principal)
CPT/HCPCS: 36415; 80048; 82043; 82570; 83036

== ENCOUNTER 2021-02-15 08:00 | Outpatient (CLI) | payer MEDICARE, BC ==
[2021-02-15 12:10] LABS: CREATININE,URINE 173.1 mg/dL; MICROALBUMIN,URINE 0.7 mg/dL (0-300.0)
[2021-02-15 12:20] LABS: POTASSIUM 4.2 mmol/L (3.5-5.0)
[2021-02-15 12:21] LABS: ESTIMATED AVERAGE GLUCOSE 128 mg/dL (70-100); HEMOGLOBIN A1c% 6.1 % (4.27-6.07)
== END 2021-02-15 23:59 | disposition home or self-care (01) ==
LOC: LAB.WCP 08:00
PROVIDERS: ATTEND Family Medicine
DX: E11.9 Type 2 diabetes mellitus without complications (principal); I10 Essential (primary) hypertension
CPT/HCPCS: 36415; 80048; 82043; 82570; 83036

== ENCOUNTER 2021-08-28 08:29 | Outpatient (CLI) | payer MEDICARE, BC ==
[2021-08-28 12:03] LABS: BASOPHILS # (AUTO) 0.1 10^3/uL (0.0-0.1); BASOPHILS % (AUTO) 0.8 %; EOSINOPHILS # (AUTO) 0.1 10^3/uL (0.0-0.7); EOSINOPHILS % (AUTO) 2.1 %; HCT - HEMATOCRIT 46.7 % (42.0-52.0); HGB - HEMOGLOBIN 15.4 g/dL (14.0-18.0); LYMPHOCYTES % (AUTO) 30.5 %; MEAN CORPUSCULAR HEMOGLOBIN 30.9 pg (27.0-31.0); MEAN CORPUSCULAR VOLUME 93.6 fL (80.0-94.0); MEAN PLATELET VOLUME 10.4 fL (7.4-11.4); MONOCYTES # (AUTO) 0.5 10^3/uL (0.0-1.0); MONOCYTES % (AUTO) 7.6 %; NEUTROPHILS # (AUTO) 3.8 10^3/uL (1.5-6.6); NEUTROPHILS % (AUTO) 58.5 %; PLT - PLATELET COUNT 218 10^3/uL (130-450); RED BLOOD COUNT 4.99 10^6/uL (4.70-6.10); RED CELL DISTRIBUTION WIDTH 12.7 % (12.0-15.0); WHITE BLOOD COUNT 6.6 x10^3/uL (4.8-10.8)
[2021-08-28 12:39] LABS: THYROID STIMULATING HORMONE 2.75 uIU/mL (0.34-5.60)
[2021-08-28 12:50] LABS: ALBUMIN/GLOBULIN RATIO 1.3 (1.0-2.2); ALKALINE PHOSPHATASE 55 IU/L (42-121); ALT ALANINE AMINOTRANSFERASE 27 IU/L (10-60); AST ASPARTATE AMINOTRANSFERASE 21 IU/L (10-42); BILIRUBIN,TOTAL 0.4 mg/dL (0.2-1.0); BUN - BLOOD UREA NITROGEN 14 mg/dL (6-20); CALCIUM 8.9 mg/dL (8.5-10.3); CARBON DIOXIDE - CO2 27 mmol/L (21-32); CHLORIDE 101 mmol/L (101-111); CHOL/HDL RATIO 3.6 (<5.0); CHOLESTEROL 161 mg/dL; GFR - MDRD 74 (>89); GLUCOSE 115 mg/dL (70-100); HDL CHOLESTEROL 45 mg/dL; LDL CHOLESTEROL,CALCULATED 98 mg/dL; LDL/HDL RATIO 2.2 (<3.6); POTASSIUM 4.5 mmol/L (3.5-5.0); SODIUM 135 mmol/L (135-145); TOTAL PROTEIN 7.1 g/dL (6.7-8.2); TRIGLYCERIDES 90 mg/dL; VLDL CHOLESTEROL 18 mg/dL
[2021-08-28 12:55] LABS: CREATININE,URINE 299.8 mg/dL; ESTIMATED AVERAGE GLUCOSE 131 mg/dL (70-100); HEMOGLOBIN A1c% 6.2 % (4.27-6.07); MICROALBUM/CREATININE RATIO,UR 4.7 ug/mg (<30.0); MICROALBUMIN,URINE 1.4 mg/dL (0-300.0)
== END 2021-08-28 08:30 | disposition home or self-care (01) ==
LOC: LAB.N 08:29
PROVIDERS: ATTEND Family Medicine
DX: Z00.00 Encounter for general adult medical examination without abnormal findings (principal); I10 Essential (primary) hypertension; E78.5 Hyperlipidemia, unspecified; E11.9 Type 2 diabetes mellitus without complications
CPT/HCPCS: 36415; 80053; 80061; 82043; 82570; 83036; 83721; 84153; 84443; 85025

== ENCOUNTER 2022-01-18 06:21 | Day surgery (SDC) | payer MEDICARE, BC ==
[2022-01-18] MEDS ORDERED: LACTATED RINGERS 1,000 ML IV ONE (06:50)
--- NOTE | 2022-01-18 07:13 | HISTORY & PHYSICAL EXAMINATION ---
Chief Complaint - Chief Complaint Chief Complaint: positive cologuard test History of Present Illness - History Obtained From Records Reviewed: yes History obtained from: pt Exam Limitations: none - History of Present Illness HPI Comment/Other: colonoscopy in 2010 mild diverticulosis. no polyps. recent cologuard positive. no colon problems. here for colonoscopy History - Past Medical History Cardiovascular: reports: Hypertension, High cholesterol Respiratory: reports: Sleep apnea Neuro: reports: Peripheral neuropathy Endocrine/Autoimmune: reports: Type 2 diabetes GI: reports: None : reports: None Psych: reports: Depression, Anxiety Musculoskeletal: reports: Osteoarthritis, Chronic back pain MRSA Hx?: No - Past Surgical History General: reports: Colonoscopy HEENT: reports: Cataracts - POLST Patient has POLST: No Meds/Allgy - Home Medications Home Medications: Ambulatory Orders Medication Instructions Recorded Confirmed Aspirin [Aspir 81] 81 mg PO DAILY 07/26/13 01/17/22 Felodipine [Felodipine ER] 5 mg PO DAILY 07/26/13 01/17/22 Fluoxetine HCl [Sarafem] 20 mg PO DAILY 07/26/13 01/17/22 Metoprolol Tartrate 25 mg PO DAILY 07/26/13 01/17/22 Trazodone HCl 50 mg PO HS 07/26/13 01/17/22 Pravastatin [Pravachol] 20 mg PO DAILY 08/05/19 01/17/22 metFORMIN [Glucophage] 1,000 mg PO BID 08/05/19 01/17/22 Insulin Glargine [Lantus Solostar] 22 unit SQ DAILY 05/26/20 01/17/22 Lisinopril [Zestril] 20 mg PO DAILY 01/17/22 01/17/22 - Allergies Allergies/Adverse Reactions: Allergies Allergy/AdvReac Type Severity Reaction Status Date / Time rosuvastatin [From Crestor] AdvReac Cramps Verified 01/18/22 06:54 Review of Systems - Other Findings Other Findings: 10 pt ros as above otherwise unremarkable Exam - Vital Signs Reviewed Vital Signs: Yes Vital Signs: Vital Signs x48h Temp Pulse Resp BP Pulse Ox 01/18/22 06:35 36.1 C L 69 16 130/92 H 97 - Physical Exam General Appearance: positive: No acute distress, Alert Eyes Bilateral: positive: PERRL, EOMI, No scleral icterus ENT: positive: No signs of dehydration Neck: positive: No JVD Respiratory: positive: No respiratory distress, Breath sounds nml Cardiovascular: positive: Regular rate & rhythm Abdomen: positive: Non-tender, No distention Neurologic/Psychiatric: positive: Oriented x3 Conclusion/Plan - Problem List (1) Abnormal stool test Conclusion/Plan: posiivei cologuard. plan colonoscopy. parq held and consent obtained
--- NOTE | 2022-01-18 07:13 | ANESTHESIA ---
Pre-Anesthesia VS, & Labs - Diagnosis positive cologuard - Procedure colonoscopy Vital Signs: Temp Pulse Resp BP Pulse Ox 36.1 C L 69 16 130/92 H 97 01/18/22 06:35 01/18/22 06:35 01/18/22 06:35 01/18/22 06:35 01/18/22 06:35 Height: 6 ft Weight (kg): 106.6 kg Body Mass Index: 31.8 BMI Classification: Obese - NPO >8 hours Last Fluid Intake: am prep - Lab Results Current Lab Results: Laboratory Tests 01/18/22 06:43: POC Whole Bld Glucose 155 H Lab results reviewed: Yes Home Medications and Allergies Home Medications: Ambulatory Orders Lisinopril [Zestril] 20 mg PO DAILY 01/17/22 Aspirin [Aspir 81] 81 mg PO DAILY 07/26/13 Felodipine [Felodipine ER] 5 mg PO DAILY 07/26/13 Fluoxetine HCl [Sarafem] 20 mg PO DAILY 07/26/13 Metoprolol Tartrate 25 mg PO DAILY 07/26/13 Trazodone HCl 50 mg PO HS 07/26/13 Pravastatin [Pravachol] 20 mg PO DAILY 08/05/19 metFORMIN [Glucophage] 1,000 mg PO BID 08/05/19 Insulin Glargine [Lantus Solostar] 22 unit SQ DAILY 05/26/20 Lisinopril [Zestril] 20 mg PO DAILY 01/17/22 Allergies/Adverse Reactions: Allergies Allergy/AdvReac Type Severity Reaction Status Date / Time rosuvastatin [From Crestor] AdvReac Cramps Verified 01/18/22 06:54 Anes History & Medical History - Anesthetic History Anesthesia Complications: reports: No previous complications Family history of Anesthesia Complications: Denies Family history of Malignant Hyperthermia: Denies - Medical History Cardiovascular: reports: Hypertension, High cholesterol Pulmonary: reports: Sleep apnea Gastrointestinal: reports: None Urinary: reports: None Neuro: reports: Peripheral neuropathy Musculoskeletal: reports: Osteoarthritis, Chronic back pain Endocrine/Autoimmune: reports: Type 2 diabetes Blood Disorders: reports: None Smoking Status: Former smoker History of Cancer?: No - Surgical History General: reports: Colonoscopy Eyes Ears Nose Throat (EENT): reports: Cataracts Exam General: Alert, Oriented x3, Cooperative Dental: WNL Mouth Openin Fingerbreadth Neck Mobility: Normal Mallampati classification: II Thyromental Distance: 4-6 cm Respiratory: Lungs clear, Normal breath sounds, No respiratory distress Cardiovascular: Regular rate Neurological: Normal speech Mental/Cognitive Status: Alert/Oriented X3, Normal for patient Cognitive Status: Within normal limits Plan Anesthesia Type: Total IV Consent for Procedure(s) Verified and Reviewed: Yes Code Status: Attempt Resuscitation ASA classification: 2-Mild systemic disease Is this case an emergency?: No
[2022-01-18] MEDS ORDERED: LIDOCAINE-MPF 2% 5 ML VIAL ONE (07:14)
[2022-01-18] MEDS ORDERED: PROPOFOL 500 MG/50 ML 500 MG/50 ML VIAL ONE (07:15)
[2022-01-18] MEDS ORDERED: LACTATED RINGERS 500 ML IV ONE (07:56)
[2022-01-18 08:19] VITALS: BP 134/90
--- NOTE | 2022-01-18 08:57 | ANESTHESIA POST OP EVALUATION ---
Anesthesia Post Eval - Post Anesthesia Eval Vitals: Last Vital Signs Temp 36.6 C 01/18/22 08:17 Pulse 61 01/18/22 08:17 Resp 16 01/18/22 08:17 BP 134/90 H 01/18/22 08:17 Pulse Ox 95 01/18/22 08:17 CV Function Including HR & BP: Stable Pain Control: Satisfactory Nausea & Vomiting: Negative Mental Status: Baseline Respiratory Status: Airway Patent Hydration Status: Satisfactory Anesthesia Complications: None
== END 2022-01-18 06:22 | disposition home or self-care (01) ==
LOC: SDS 06:21
PROVIDERS: ATTEND Surgery
PROC: 0DBN8ZX Excision of Sigmoid Colon, Via Natural or Artificial Opening Endoscopic, Diagnostic (ICD-10-PCS; 2022-01-18)
PROC: 0DBP8ZX Excision of Rectum, Via Natural or Artificial Opening Endoscopic, Diagnostic (ICD-10-PCS; principal; 2022-01-18 07:30)
DX: R19.5 Other fecal abnormalities (principal); K62.1 Rectal polyp; K63.5 Polyp of colon; K57.30 Diverticulosis of large intestine without perforation or abscess without bleeding; I10 Essential (primary) hypertension; E11.42 Type 2 diabetes mellitus with diabetic polyneuropathy; E66.9 Obesity, unspecified; Z68.31 Body mass index [BMI] 31.0-31.9, adult; Z79.4 Long term (current) use of insulin; Z79.82 Long term (current) use of aspirin; Z79.84 Long term (current) use of oral hypoglycemic drugs; Z87.891 Personal history of nicotine dependence
CPT/HCPCS: 45380; J7120

== ENCOUNTER 2022-04-17 10:10 | Outpatient (CLI) | payer MEDICARE, BC ==
[2022-04-17 13:03] LABS: THYROID STIMULATING HORMONE 2.35 uIU/mL (0.34-5.60)
[2022-04-18 18:08] LABS: ANTI-DNA (DS) AB QN 1 IU/mL (0-9); CENTROMERE B ANTIBODIES <0.2 AI (0.0-0.9); CHROMATIN ANTIBODIES <0.2 AI (0.0-0.9); JO-1 AB <0.2 AI (0.0-0.9); RIBOSOMAL P ANTIBODIES <0.2 AI (0.0-0.9); RNP ANTIBODIES <0.2 AI (0.0-0.9); SCLERODERMA-70 ANTIBODIES <0.2 AI (0.0-0.9); SJOGREN'S ANTI-SS-A <0.2 AI (0.0-0.9); SJOGREN'S ANTI-SS-B <0.2 AI (0.0-0.9); SMITH ANTIBODIES <0.2 AI (0.0-0.9); SMITH/RNP ANTIBODIES <0.2 AI (0.0-0.9)
== END 2022-04-17 10:11 | disposition home or self-care (01) ==
LOC: LAB.N 10:10
PROVIDERS: ATTEND Physician Assistant
DX: K13.29 Other disturbances of oral epithelium, including tongue (principal); R20.2 Paresthesia of skin
CPT/HCPCS: 36415; 84443; 85651; 86225; 86235

== ENCOUNTER 2022-06-22 02:43 | Emergency (ER) | payer MEDICARE, BC ==
--- NOTE | 2022-06-22 02:55 | ED Physician Documentation ---
PD HPI DYSPNEA - Stated complaint Stated Complaint: COUGH,SOA - Chief complaint Chief Complaint: Resp - History obtained from History obtained from: Patient - History of Present Illness Timing - onset: How many days ago (3-4) Timing - duration: Days Timing - details: Gradual onset, Waxing and waning Improved by: Rest Worsened by: Other (no exacerbating factors) Associated symptoms: Cough. No: Fever, Hemoptysis, Wheezing, Chest pain / discomfort, Palpitations - Additional information Additional information: c/o 3-4 days of productive cough, body aches/generalized myalgias, generalized headache, sore throat. Denies fever. Review of Systems Constitutional: denies: Fever, Chills, Sweats Cardiac: reports: Reviewed and negative Respiratory: reports: Cough. denies: Dyspnea, Wheezing GI: reports: Reviewed and negative PD PAST MEDICAL HISTORY - Past Medical History Cardiovascular: Hypertension, High cholesterol Respiratory: Sleep apnea Neuro: Peripheral neuropathy Endocrine/Autoimmune: Type 2 diabetes GI: None : None Psych: Depression, Anxiety Musculoskeletal: Osteoarthritis, Chronic back pain - Past Surgical History Past Surgical History: Yes General: Colonoscopy HEENT: Cataracts - Present Medications Home Medications: Ambulatory Orders Medication Instructions Recorded Confirmed Aspirin [Aspir 81] 81 mg PO DAILY 07/26/13 01/17/22 Felodipine [Felodipine ER] 5 mg PO DAILY 07/26/13 01/17/22 Fluoxetine HCl [Sarafem] 20 mg PO DAILY 07/26/13 01/17/22 Metoprolol Tartrate 25 mg PO DAILY 07/26/13 01/17/22 Trazodone HCl 50 mg PO HS 07/26/13 01/17/22 Pravastatin [Pravachol] 20 mg PO DAILY 08/05/19 01/17/22 metFORMIN [Glucophage] 1,000 mg PO BID 08/05/19 01/17/22 Insulin Glargine [Lantus Solostar] 22 unit SQ DAILY 05/26/20 01/17/22 Lisinopril [Zestril] 20 mg PO DAILY 01/17/22 01/17/22 Codeine Phosphate/Guaifenesin 5 - 10 ml PO Q6HR PRN #100 ml 06/22/22 [Codeine-Guaifen 10-100 mg/5 ml] - Allergies Allergies/Adverse Reactions: Allergies Allergy/AdvReac Type Severity Reaction Status Date / Time rosuvastatin [From Crestor] AdvReac Cramps Verified 06/22/22 02:52 - Social History Does the pt smoke?: No Smoking Status: Never smoker Does the pt drink ETOH?: Yes Does the pt have substance abuse?: No - Immunizations Immunizations are current?: Yes - POLST Patient has POLST: No PD ED PE NORMAL - Vitals Vital signs reviewed: Yes - General General: Alert and oriented X 3, No acute distress, Well developed/nourished - HEENT HEENT: Atraumatic, PERRL, EOMI - Neck Neck: Supple, no meningeal sign - Cardiac Cardiac: RRR, No murmur, No gallop, No rub - Respiratory Respiratory: No respiratory distress, Clear bilaterally - Abdomen Abdomen: Soft, Non tender Results - Vitals Vitals: Oxygen O2 Source Room air - Labs Labs: Laboratory Tests 06/22/22 02:53 Nasal Adenovirus (PCR) NOT DETECTED Nasal B. parapertussis DNA (PCR) NOT DETECTED Nasal Coronavir 229E PCR NOT DETECTED Nasal Coronavir HKU1 PCR NOT DETECTED Nasal Coronavir NL63 PCR NOT DETECTED Nasal Coronavir OC43 PCR NOT DETECTED Nasal Enterovir/Rhinovir PCR NOT DETECTED Nasal Influenza B PCR NOT DETECTED Nasal Influenza A PCR NOT DETECTED Nasal Parainfluen 1 PCR NOT DETECTED Nasal Parainfluen 2 PCR NOT DETECTED Nasal Parainfluen 3 PCR NOT DETECTED Nasal Parainfluen 4 PCR NOT DETECTED Nasal RSV (PCR) DETECTED A Nasal B.pertussis DNA PCR NOT DETECTED Nasal C.pneumoniae (PCR) NOT DETECTED Harjinder Human Metapneumo PCR NOT DETECTED Nasal M.pneumoniae (PCR) NOT DETECTED Nasal SARS-CoV-2 (PCR) NOT DETECTED PD MEDICAL DECISION MAKING - ED course Complexity details: reviewed results, re-evaluated patient, considered differential, d/w patient ED course: URI symptoms, lungs CTA bilaterally and patient is in NAD. Respiratory PCR panel is positive for RSV, negative for all other viruses tested. Results d/w patient. He is provided rx for robitussin AC. Return precautions discussed I am prescribing a short course of short-acting opioid cough medication for this patient. 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 I have discussed that the opioids are for short term therapy only, and will not be refilled from the ED Departure - Departure Disposition: 01 Home, Self Care Clinical Impression: RSV infection Condition: Good Instructions: ED RSV Bronchiolitis, ED Viral Syndrome Prescriptions: Codeine Phosphate/Guaifenesin [Codeine-Guaifen 10-100 mg/5 ml] 5 - 10 ml PO Q6HR PRN #100 ml PRN Reason: Cough Comments: You tested positive for RSV, which is a common virus. It mostly causes problems in children and infants, but as you now know, it can affect adults as well. Typically adults do not have serious problems/symptoms with this virus and there is no specific treatment (such as antibiotics or anti-viral medications). A prescription for guaifensin (expectorant; loosens phlegm and secretions) and codeine (suppresses the cough) has been electronically submitted to the [facility] pharmacy in [place]. I am prescribing a short course of narcotic pain medication for you. These are potentially dangerous and addictive medications that should be used carefully. These medications may constipate you. Take an ecob-bxz-[id number] stool softener (docusate) twice daily with plenty of water while taking these medications. If you go 24 hours without a bowel movement, take vcmz-[id number] miralax, per package instructions. Do not drink or drive while taking these medications. If you received narcotic or sedating medications while in the emergency department, do not drive for 24 hours. Store this medication in a safe, secure place and out of reach of children. It is a violation of federal law to give or sell this medication to another person or to use in a manner other than prescribed. The ED will not refill narcotic prescriptions, including prescriptions lost or stolen. To dispose of unwanted medications: 1. [facility] at [address] in [place] has a medication drop box. They accept prescription medications (in pill form) Saturday through Saturday 9:00 a.m. to 5:00 p.m. 2. The [facility] [employer] accepts prescription medications (in pill form only) for disposal year round. Call for more information. 3. Contact the [facility] for the next [facility] sponsored prescription drug collection event. , [phone], or [phone]; Discharge Date/Time: 06/22/22 04:57
[2022-06-22 03:47] LABS: B. PARAPERTUSSIS- RESP PCR PAN NOT DETECTED; B. PERTUSSIS- RESP PCR PANEL NOT DETECTED; C. PNEUMONIAE- RESP PCR PANEL NOT DETECTED; CORONAVIRUS 229E-RESP PCR NOT DETECTED; CORONAVIRUS HKU1-RESP PCR NOT DETECTED; CORONAVIRUS NL63-RESP PCR NOT DETECTED; CORONAVIRUS OC43-RESP PCR NOT DETECTED; HUMAN METAPNEUMOVIRUS NOT DETECTED; INFLUENZA A- RESP PCR PANEL NOT DETECTED; INFLUENZA B - RESP PCR PANEL NOT DETECTED; M. PNEUMONIAE- RESP PCR PANEL NOT DETECTED; PARAINFLUENZA VIRUS 1 NOT DETECTED; PARAINFLUENZA VIRUS 2 NOT DETECTED; PARAINFLUENZA VIRUS 3 NOT DETECTED; PARAINFLUENZA VIRUS 4 NOT DETECTED; RHINOVIRUS/ENTEROVIRUS NOT DETECTED; RSV- RESP PCR PANEL DETECTED; SARS-CoV-2 -RESP PCR PANEL NOT DETECTED
[2022-06-22] MEDS ORDERED: guaiFENesin/CODEINE 5 ML UDC PO STA (04:18)
[2022-06-22 04:57] VITALS: BP 128/88
== END 2022-06-22 04:57 | disposition home or self-care (01) ==
LOC: ED 02:43
DX: R05.9 Cough, unspecified (principal); M79.10 Myalgia, unspecified site; R51.9 Headache, unspecified; B97.4 Respiratory syncytial virus as the cause of diseases classified elsewhere; Z20.822 Contact with and (suspected) exposure to COVID-19
CPT/HCPCS: 87633; 99283; A9270

== ENCOUNTER 2022-07-18 07:06 | Outpatient (CLI) | payer MEDICARE, BC ==
[2022-07-18 19:59] LABS: CALCIUM 8.8 mg/dL (8.5-10.3); CREATININE 1.1 mg/dL (0.6-1.2); POTASSIUM 4.3 mmol/L (3.5-5.0)
[2022-07-18 21:18] LABS: ESTIMATED AVERAGE GLUCOSE 169 mg/dL (70-100); HEMOGLOBIN A1c% 7.5 % (4.27-6.07)
== END 2022-07-18 07:07 | disposition home or self-care (01) ==
LOC: LAB.N 07:06
PROVIDERS: ATTEND Family Medicine
DX: I10 Essential (primary) hypertension (principal); E11.9 Type 2 diabetes mellitus without complications
CPT/HCPCS: 36415; 80048; 83036

== ENCOUNTER 2022-09-11 07:21 | Outpatient (CLI) | payer MEDICARE, BC ==
[2022-09-11 11:58] LABS: BASOPHILS # (AUTO) 0.1 10^3/uL (0.0-0.1); BASOPHILS % (AUTO) 0.7 %; EOSINOPHILS # (AUTO) 0.2 10^3/uL (0.0-0.7); EOSINOPHILS % (AUTO) 2.5 %; HCT - HEMATOCRIT 47.7 % (42.0-52.0); HGB - HEMOGLOBIN 15.3 g/dL (14.0-18.0); LYMPHOCYTES # (AUTO) 2.4 10^3/uL (1.5-3.5); LYMPHOCYTES % (AUTO) 35.3 %; MEAN CORPUSCULAR HEMOGLOBIN 30.5 pg (27.0-31.0); MEAN CORPUSCULAR HGB CONC 32.1 g/dL (32.0-36.0); MEAN CORPUSCULAR VOLUME 95.2 fL (80.0-94.0); MEAN PLATELET VOLUME 10.9 fL (7.4-11.4); MONOCYTES # (AUTO) 0.7 10^3/uL (0.0-1.0); MONOCYTES % (AUTO) 9.6 %; NEUTROPHILS # (AUTO) 3.5 10^3/uL (1.5-6.6); NEUTROPHILS % (AUTO) 51.6 %; PLT - PLATELET COUNT 198 10^3/uL (130-450); RED BLOOD COUNT 5.01 10^6/uL (4.70-6.10); RED CELL DISTRIBUTION WIDTH 12.6 % (12.0-15.0); WHITE BLOOD COUNT 6.9 x10^3/uL (4.8-10.8)
[2022-09-11 12:33] LABS: ALBUMIN 3.8 g/dL (3.2-5.5); ALBUMIN/GLOBULIN RATIO 1.1 (1.0-2.2); BILIRUBIN,TOTAL 0.8 mg/dL (0.2-1.0); CALCIUM 9.5 mg/dL (8.5-10.3); CREATININE 1.1 mg/dL (0.6-1.2); POTASSIUM 3.9 mmol/L (3.5-5.0); TOTAL PROTEIN 7.3 g/dL (6.7-8.2)
[2022-09-11 12:54] LABS: MICROALBUM/CREATININE RATIO,UR 3.3 ug/mg (<30.0); MICROALBUMIN,URINE 0.8 mg/dL (0-300.0)
[2022-09-11 13:35] LABS: ESTIMATED AVERAGE GLUCOSE 163 mg/dL (70-100); HEMOGLOBIN A1c% 7.3 % (4.27-6.07)
== END 2022-09-11 07:22 | disposition home or self-care (01) ==
LOC: LAB.N 07:21
PROVIDERS: ATTEND Family Medicine
DX: I10 Essential (primary) hypertension (principal); E11.9 Type 2 diabetes mellitus without complications; E66.9 Obesity, unspecified; F41.9 Anxiety disorder, unspecified; F32.A Depression, unspecified
CPT/HCPCS: 36415; 80053; 82043; 82570; 83036; 85025

== ENCOUNTER 2022-12-06 07:03 | Outpatient (CLI) | payer MEDICARE, BC ==
[2022-12-06 07:27] LABS: CALCIUM 8.7 mg/dL (8.5-10.3); POTASSIUM 4.1 mmol/L (3.5-5.0)
[2022-12-06 07:32] LABS: CREATININE,URINE 249.8 mg/dL; MICROALBUM/CREATININE RATIO,UR 4.4 ug/mg (<30.0); MICROALBUMIN,URINE 1.1 mg/dL (0-300.0)
[2022-12-06 12:02] LABS: ESTIMATED AVERAGE GLUCOSE 197 mg/dL (70-100); HEMOGLOBIN A1c% 8.5 % (4.27-6.07)
== END 2022-12-06 07:04 | disposition home or self-care (01) ==
LOC: LAB 07:03
PROVIDERS: ATTEND Family Medicine
DX: I10 Essential (primary) hypertension (principal); E11.9 Type 2 diabetes mellitus without complications
CPT/HCPCS: 36415; 80048; 82043; 82570; 83036

== ENCOUNTER 2023-01-09 16:16 | Outpatient (CLI) | payer MEDICARE, BC ==
--- NOTE | 2023-01-09 16:47 | XRAY Report ---
PROCEDURE: Cervical Spine 2 View INDICATIONS: NECK PX TECHNIQUE: 2 view(s) of the cervical spine were acquired. COMPARISON: None. FINDINGS: Bones: No fractures or dislocations to the C7-T1 level. The lateral masses of C1 appear intact on t he odontoid view. No suspicious bony lesions. Multilevel degenerative changes are present most nota ble at C5-6. Multilevel uncovertebral arthropathy is present. Soft tissues: No prevertebral soft tissue swelling. IMPRESSION: Multilevel degenerative changes most severe at C5-6. Reviewed by: Sandra Green MD on 01/09/2023 4:46 PM PDT Approved by: Sandra Green MD on 01/09/2023 4:46 PM PDT Station ID: [id number]
== END 2023-01-09 16:17 | disposition home or self-care (01) ==
LOC: DI 16:16
PROVIDERS: ATTEND Nurse Practitioner
DX: M47.812 Spondylosis without myelopathy or radiculopathy, cervical region (principal)

== ENCOUNTER 2023-04-03 07:05 | Outpatient (CLI) | payer MEDICARE, BC ==
[2023-04-03 07:34] LABS: CALCIUM 9.5 mg/dL (8.5-10.3); CREATININE 1.1 mg/dL (0.6-1.3); POTASSIUM 4.2 mmol/L (3.5-4.5)
[2023-04-03 10:52] LABS: ESTIMATED AVERAGE GLUCOSE 177 mg/dL (70-100); HEMOGLOBIN A1c% 7.8 % (4.27-6.07)
== END 2023-04-03 07:06 | disposition home or self-care (01) ==
LOC: LAB 07:05
PROVIDERS: ATTEND Family Medicine
DX: E11.9 Type 2 diabetes mellitus without complications (principal)
CPT/HCPCS: 36415; 80048; 83036

== ENCOUNTER 2023-06-13 21:35 | Emergency (ER) | payer MEDICARE, BC ==
[2023-06-13] MEDS ORDERED: SODIUM CHLORIDE 0.9% 1,000 ML IV STA (21:45)
[2023-06-13 22:01] LABS: BASOPHILS % (AUTO) 0.5 %; EOSINOPHILS # (AUTO) 0.1 10^3/uL (0.0-0.7); EOSINOPHILS % (AUTO) 1.9 %; HCT - HEMATOCRIT 44.6 % (42.0-52.0); HGB - HEMOGLOBIN 14.8 g/dL (14.0-18.0); LYMPHOCYTES # (AUTO) 2.7 10^3/uL (1.5-3.5); LYMPHOCYTES % (AUTO) 36.7 %; MEAN CORPUSCULAR HGB CONC 33.2 g/dL (32.0-36.0); MEAN CORPUSCULAR VOLUME 93.3 fL (80.0-94.0); MEAN PLATELET VOLUME 10.3 fL (7.4-11.4); MONOCYTES # (AUTO) 0.8 10^3/uL (0.0-1.0); MONOCYTES % (AUTO) 10.5 %; NEUTROPHILS # (AUTO) 3.7 10^3/uL (1.5-6.6); NEUTROPHILS % (AUTO) 50.1 %; PLT - PLATELET COUNT 192 10^3/uL (130-450); RED BLOOD COUNT 4.78 10^6/uL (4.70-6.10); RED CELL DISTRIBUTION WIDTH 11.9 % (12.0-15.0); WHITE BLOOD COUNT 7.4 x10^3/uL (4.8-10.8)
[2023-06-13 22:07] LABS: KETONES, SERUM (ACETEST) NEGATIVE (NEGATIVE); VBG PH 7.474 (7.31-7.41)
[2023-06-13 22:08] LABS: VBG BASE EXCESS -0.3 mmol/L (-2 - +2); VBG HCO3 22.3 mmol/L (23-28); VBG OXYGEN SATURATION 97.3 % (60-80); VBG PO2 82.6 mmHg (25-47); VBG TOTAL CO2 23.2 mmol/L (24-29)
[2023-06-13 22:18] LABS: ALBUMIN/GLOBULIN RATIO 1.8 (1.0-2.2); ALKALINE PHOSPHATASE 67 IU/L (42-121); ALT ALANINE AMINOTRANSFERASE 35 IU/L (10-60); AST ASPARTATE AMINOTRANSFERASE 17 IU/L (10-42); BILIRUBIN,TOTAL 0.3 mg/dL (0.2-1.0); BUN - BLOOD UREA NITROGEN 19 mg/dL (6-20); CALCIUM 8.7 mg/dL (8.5-10.3); CARBON DIOXIDE - CO2 24 mmol/L (21-32); CHLORIDE 99 mmol/L (101-111); CREATININE 1.3 mg/dL (0.6-1.3); GFR - MDRD 55 (>89); GLUCOSE 499 mg/dL (74-104); MAGNESIUM 1.9 mg/dL (1.7-2.3); PHOSPHORUS 3.3 mg/dL (2.5-5.0); POTASSIUM 4.2 mmol/L (3.5-4.5); SODIUM 130 mmol/L (135-145); TOTAL PROTEIN 6.2 g/dL (6.4-8.9)
[2023-06-13] MEDS ORDERED: INSULIN REGULAR HUMAN 300 UNIT/3 ML VIAL SUBQ ONE (23:05)
--- NOTE | 2023-06-13 23:27 | ED Physician Documentation ---
History of Present Illness - Stated complaint Stated Complaint: HIGH BLOOD SUGAR - Chief complaint Chief Complaint: General - History obtained from History obtained from: Patient - Additonal information Additional information: Patient is a 72-year-old male who is an insulin-dependent diabetic presenting for evaluation of elevated blood sugar reading. This evening noted that patient was going to the bathroom more often so they checked his blood sugar and was in the 400s range. When they looked online they saw that Could be serious for her blood sugar to be in this range and thus a presented to the emergency department. Patient takes 30 units of Lantus in the morning and has been compliant with it. It is day so his diet has been different than his usual. He denies any recent illness. No chest pain, shortness of air, abdominal symptoms. No vomiting. No dysuria.He believes his last A1c was 7.5 a few months ago so he is working with Dr. Johnston on getting his diabetes back under control. Review of Systems Constitutional: denies: Fever Cardiac: denies: Chest pain / pressure Respiratory: denies: Dyspnea GI: denies: Abdominal Pain : reports: Frequency. denies: Dysuria PD PAST MEDICAL HISTORY - Past Medical History Cardiovascular: Hypertension, High cholesterol Respiratory: Sleep apnea Neuro: Peripheral neuropathy Endocrine/Autoimmune: Type 2 diabetes GI: None : None HEENT: None Psych: Depression, Anxiety Musculoskeletal: Osteoarthritis, Chronic back pain Derm: None - Past Surgical History Past Surgical History: Yes General: Colonoscopy HEENT: Cataracts - Present Medications Home Medications: Ambulatory Orders Medication Instructions Recorded Confirmed Aspirin [Aspir 81] 81 mg PO DAILY 07/26/13 06/14/23 Felodipine [Felodipine ER] 5 mg PO DAILY 07/26/13 06/14/23 Metoprolol Tartrate 25 mg PO DAILY 07/26/13 06/14/23 Trazodone HCl 50 mg PO HS 07/26/13 06/14/23 Pravastatin [Pravachol] 20 mg PO DAILY 08/05/19 06/14/23 metFORMIN [Glucophage] 500 mg PO BID 08/05/19 06/14/23 Insulin Glargine [Lantus Solostar] 35 unit SQ DAILY 05/26/20 06/14/23 Lisinopril [Zestril] 20 mg PO DAILY 01/17/22 06/14/23 - Allergies Allergies/Adverse Reactions: Allergies Allergy/AdvReac Type Severity Reaction Status Date / Time rosuvastatin [From Crestor] AdvReac Cramps Verified 06/13/23 21:38 - Social History Does the pt smoke?: No Smoking Status: Never smoker Does the pt drink ETOH?: Yes Does the pt have substance abuse?: No - Immunizations Immunizations are current?: Yes - POLST Patient has POLST: No PD ED PE NORMAL - General General: Alert and oriented X 3, No acute distress, Well developed/nourished - HEENT HEENT: Atraumatic, Moist mucous membranes, Pharynx benign - Neck Neck: Supple, no meningeal sign - Cardiac Cardiac: RRR, Strong equal pulses - Respiratory Respiratory: No respiratory distress, Clear bilaterally - Abdomen Abdomen: Normal bowel sounds, Soft, Non tender, Non distended - Derm Derm: Warm and dry - Neuro Neuro: Normal speech Results - Vitals Vitals: Vital Signs - 24 hr 06/13/23 06/13/23 21:38 23:42 Temperature 36.8 C Heart Rate 69 53 L Respiratory 16 22 Rate Blood Pressure 144/71 H 135/85 H O2 Saturation 97 95 Oxygen O2 Source Room air - Labs Labs: Laboratory Tests 06/13/23 06/13/23 06/13/23 21:46 21:55 21:55 WBC 7.4 RBC 4.78 Hgb 14.8 Hct 44.6 MCV 93.3 MCH 31.0 MCHC 33.2 RDW 11.9 L Plt Count 192 MPV 10.3 Neut # (Auto) 3.7 Lymph # (Auto) 2.7 Haines # (Auto) 0.8 Eos # (Auto) 0.1 Baso # (Auto) 0.0 Absolute Nucleated RBC 0.00 Nucleated RBC % 0.0 VBG pH VBG pCO2 VBG pO2 VBG HCO3 VBG Total CO2 VBG O2 Saturation VBG Base Excess Sodium 130 L Potassium 4.2 Chloride 99 L Carbon Dioxide 24 Anion Gap 7.0 BUN 19 Creatinine 1.3 Estimated GFR (MDRD) 55 L Glucose 499 H POC Whole Bld Glucose 454 H Calcium 8.7 Phosphorus 3.3 Magnesium 1.9 Total Bilirubin 0.3 AST 17 ALT 35 Alkaline Phosphatase 67 Total Protein 6.2 L Albumin 4.0 Globulin 2.2 Albumin/Globulin Ratio 1.8 Urine Color Urine Clarity Urine pH Ur Specific Loring Urine Protein Urine Glucose (UA) Urine Ketones Urine Occult Blood Urine Nitrite Urine Bilirubin Urine Urobilinogen Ur Leukocyte Esterase Ur Microscopic Review Urine Culture Comments Serum Ketones NEGATIVE 06/13/23 06/13/23 06/13/23 21:55 22:57 23:28 WBC RBC Hgb Hct MCV MCH MCHC RDW Plt Count MPV Neut # (Auto) Lymph # (Auto) Haines # (Auto) Eos # (Auto) Baso # (Auto) Absolute Nucleated RBC Nucleated RBC % VBG pH 7.474 H VBG pCO2 31.0 L VBG pO2 82.6 H VBG HCO3 22.3 L VBG Total CO2 23.2 L VBG O2 Saturation 97.3 H VBG Base Excess -0.3 Sodium Potassium Chloride Carbon Dioxide Anion Gap BUN Creatinine Estimated GFR (MDRD) Glucose POC Whole Bld Glucose 413 H Calcium Phosphorus Magnesium Total Bilirubin AST ALT Alkaline Phosphatase Total Protein Albumin Globulin Albumin/Globulin Ratio Urine Color YELLOW Urine Clarity CLEAR Urine pH 6.0 Ur Specific Loring 1.010 Urine Protein NEGATIVE Urine Glucose (UA) >=1000 H Urine Ketones NEGATIVE Urine Occult Blood NEGATIVE Urine Nitrite NEGATIVE Urine Bilirubin NEGATIVE Urine Urobilinogen 0.2 (NORMAL) Ur Leukocyte Esterase NEGATIVE Ur Microscopic Review NOT INDICATED Urine Culture Comments NOT INDICATED Serum Ketones 06/14/23 00:56 WBC RBC Hgb Hct MCV MCH MCHC RDW Plt Count MPV Neut # (Auto) Lymph # (Auto) Haines # (Auto) Eos # (Auto) Baso # (Auto) Absolute Nucleated RBC Nucleated RBC % VBG pH VBG pCO2 VBG pO2 VBG HCO3 VBG Total CO2 VBG O2 Saturation VBG Base Excess Sodium Potassium Chloride Carbon Dioxide Anion Gap BUN Creatinine Estimated GFR (MDRD) Glucose POC Whole Bld Glucose 313 H Calcium Phosphorus Magnesium Total Bilirubin AST ALT Alkaline Phosphatase Total Protein Albumin Globulin Albumin/Globulin Ratio Urine Color Urine Clarity Urine pH Ur Specific Loring Urine Protein Urine Glucose (UA) Urine Ketones Urine Occult Blood Urine Nitrite Urine Bilirubin Urine Urobilinogen Ur Leukocyte Esterase Ur Microscopic Review Urine Culture Comments Serum Ketones PD Medical Decision Making - ED course Complexity details: reviewed results, re-evaluated patient, d/w patient ED course: Patient is a 72-year-old male presenting for evaluation of elevated blood sugar. He is diabetic and does use insulin. He does not have symptoms otherwise to suggest diabetic ketoacidosis. Labs were reviewed. Sodium is resulting low likely related to elevated blood glucose. Patient labs are also reassuring as he does not appear to be in DKA. He received IV fluids as well as insulin with improvement in his blood sugar. No signs of infection. Urine is clear. Patient counseled on need for close follow-up with primary care provider. Departure - Departure Disposition: Home, Self Care Clinical Impression: Hyperglycemia due to diabetes mellitus Condition: Stable Instructions: ED Hyperglycemia Diabetic Follow-Up: Milind Malloy MD [Primary Care Provider] - Comments: Your blood sugar is high tonight. Fortunately we are not seeing complications of the high blood sugars such as a condition called diabetic ketoacidosis. We have given you fluids and insulin to help lower your blood sugar. Please continue with taking your insulin as directed. I would recommend close follow- up with Dr. Johnston. Return to the emergency department with any worsening symptoms such as shortness of breath, vomiting or any other concerns. Forms: PCP List Discharge Date/Time: 06/14/23 01:03
[2023-06-13 23:36] LABS: BILIRUBIN,URINE NEGATIVE (NEGATIVE); GLUCOSE, URINE (UA) >=1000 mg/dL (NEGATIVE); KETONES,URINE (UA) NEGATIVE (NEGATIVE); LEUKOCYTE ESTERASE, URINE NEGATIVE (NEGATIVE); NITRITE,URINE NEGATIVE (NEGATIVE); OCCULT BLOOD,URINE NEGATIVE (NEGATIVE); PROTEIN,URINE NEGATIVE (NEGATIVE); UROBILINOGEN,URINE 0.2 (NORMAL) E.U./dL (NORMAL)
[2023-06-13 23:47] LABS: CLARITY,URINE CLEAR (CLEAR)
[2023-06-14 01:10] VITALS: BP 135/85; O2SAT 95
== END 2023-06-14 01:03 | disposition home or self-care (01) ==
LOC: ED 21:35
DX: E11.65 Type 2 diabetes mellitus with hyperglycemia (principal); Z79.4 Long term (current) use of insulin; Z79.84 Long term (current) use of oral hypoglycemic drugs
CPT/HCPCS: 36415; 80053; 81003; 82009; 82803; 83735; 84100; 85025; 96360; 99283; 99284; J1815; 81001; 87086

== ENCOUNTER 2023-07-31 07:56 | Emergency (ER) | payer MEDICARE, BC ==
[2023-07-31] MEDS: SODIUM CHLORIDE 0.9% 1,000 ML IV STA (08:39)
[2023-07-31 08:45] LABS: BASOPHILS % (AUTO) 0.3 %; EOSINOPHILS % (AUTO) 0.2 %; HCT - HEMATOCRIT 44.2 % (42.0-52.0); HGB - HEMOGLOBIN 14.7 g/dL (14.0-18.0); LYMPHOCYTES % (AUTO) 14.3 %; MEAN CORPUSCULAR HEMOGLOBIN 30.9 pg (27.0-31.0); MEAN CORPUSCULAR HGB CONC 33.3 g/dL (32.0-36.0); MEAN CORPUSCULAR VOLUME 92.9 fL (80.0-94.0); MEAN PLATELET VOLUME 10.3 fL (7.4-11.4); MONOCYTES # (AUTO) 0.8 10^3/uL (0.0-1.0); MONOCYTES % (AUTO) 11.9 %; NEUTROPHILS # (AUTO) 4.9 10^3/uL (1.5-6.6); PLT - PLATELET COUNT 149 10^3/uL (130-450); RED BLOOD COUNT 4.76 10^6/uL (4.70-6.10); RED CELL DISTRIBUTION WIDTH 12.2 % (12.0-15.0); WHITE BLOOD COUNT 6.7 x10^3/uL (4.8-10.8)
--- NOTE | 2023-07-31 08:55 | ED Physician Documentation ---
History of Present Illness - Stated complaint Stated Complaint: HIGH BS,SARMIENTO,COUGH,CONGESTION,GEN WEAKNESS - Chief complaint Chief Complaint: General - History obtained from History obtained from: Patient - Additonal information Additional information: Patient is a 73-year-old male with a history of insulin-dependent diabetes presenting for evaluation of elevated blood sugar noted this morning. Patient states that for the past 3 days he has had URI symptoms consisting of sore throat, cough, nasal congestion. He checks his blood sugar every day and on Saturday it was in the 200 range in the morning. This morning it was 420 which concerned him. He does take Lantus in the morning which she did take. He does not take a short acting insulin. He denies nausea, vomiting, abdominal pain, urinary frequency. He denies chest pain or shortness of air. He reports feeling a little weak. Has not taken a COVID test. No known sick contacts. No reported fevers. Cough is not productive. Review of Systems Constitutional: denies: Fever Nose: reports: Congestion Cardiac: denies: Chest pain / pressure Respiratory: reports: Cough GI: denies: Abdominal Pain, Vomiting : denies: Dysuria PD PAST MEDICAL HISTORY - Past Medical History Past Medical History: Yes Cardiovascular: Hypertension, High cholesterol Respiratory: Sleep apnea Neuro: Peripheral neuropathy Endocrine/Autoimmune: Type 2 diabetes GI: None : None HEENT: None Psych: Depression, Anxiety Musculoskeletal: Osteoarthritis, Chronic back pain Derm: None - Past Surgical History Past Surgical History: Yes General: Colonoscopy HEENT: Cataracts - Present Medications Home Medications: Ambulatory Orders Medication Instructions Recorded Confirmed Aspirin [Aspir 81] 81 mg PO DAILY 07/26/13 07/31/23 Felodipine [Felodipine ER] 5 mg PO DAILY 07/26/13 07/31/23 Metoprolol Tartrate 25 mg PO DAILY 07/26/13 07/31/23 Trazodone HCl 50 mg PO HS 07/26/13 07/31/23 Pravastatin [Pravachol] 20 mg PO DAILY 08/05/19 07/31/23 metFORMIN [Glucophage] 2 tab PO BID 08/05/19 07/31/23 FLUoxetine [PROzac] 20 mg PO DAILY 07/31/23 07/31/23 Gabapentin [Neurontin] 1 tab PO DAILY 07/31/23 07/31/23 Insulin Glargine [Lantus Solostar] 35 units SUBQ DAILY 07/31/23 07/31/23 Lisinopril/Hydrochlorothiazide 1 tab PO DAILY 07/31/23 07/31/23 [Zestoretic 10-12.5 mg Tablet] - Allergies Allergies/Adverse Reactions: Allergies Allergy/AdvReac Type Severity Reaction Status Date / Time rosuvastatin [From Crestor] AdvReac Cramps Verified 07/31/23 08:06 - Social History Does the pt smoke?: No Smoking Status: Never smoker Does the pt drink ETOH?: Yes Does the pt have substance abuse?: No - Immunizations Immunizations are current?: Yes - POLST Patient has POLST: No PD ED PE NORMAL - General General: Alert and oriented X 3, No acute distress, Well developed/nourished - HEENT HEENT: Atraumatic, Moist mucous membranes, Pharynx benign - Neck Neck: Supple, no meningeal sign - Cardiac Cardiac: RRR, Strong equal pulses - Respiratory Respiratory: No respiratory distress, Clear bilaterally - Abdomen Abdomen: Normal bowel sounds, Soft, Non tender, Non distended - Derm Derm: Warm and dry - Neuro Neuro: Normal speech Results - Vitals Vitals: Vital Signs - 24 hr 07/31/23 07/31/23 08:03 10:46 Temperature 91 C H 98.8 C H Heart Rate 90 78 Respiratory 20 16 Rate Blood Pressure 147/125 H 120/82 H O2 Saturation 95 96 Oxygen O2 Source Room air - EKG (time done) 0840 EKG releavant findings:: EKG personally interpreted by author of this note. Relevant findings are: Rate 75, normal sinus rhythm, motion artifact, no STEMI - Labs Labs: Laboratory Tests 07/31/23 07/31/23 07/31/23 08:30 08:30 08:30 WBC 6.7 RBC 4.76 Hgb 14.7 Hct 44.2 MCV 92.9 MCH 30.9 MCHC 33.3 RDW 12.2 Plt Count 149 MPV 10.3 Neut # (Auto) 4.9 Lymph # (Auto) 1.0 L [place] # (Auto) 0.8 Eos # (Auto) 0.0 Baso # (Auto) 0.0 Absolute Nucleated RBC 0.00 Nucleated RBC % 0.0 Sodium 132 L Potassium 4.0 Chloride 99 L Carbon Dioxide 25 Anion Gap 8.0 BUN 15 Creatinine 0.9 Estimated GFR (MDRD) 83 L Glucose 333 H Calcium 8.5 Total Bilirubin 0.5 AST 19 ALT 32 Alkaline Phosphatase 57 Total Protein 6.4 Albumin 3.8 Globulin 2.6 Albumin/Globulin Ratio 1.5 Lipase 25 Nasal Adenovirus (PCR) NOT DETECTED Nasal B. parapertussis DNA (PCR) NOT DETECTED Nasal Coronavir 229E PCR NOT DETECTED Nasal Coronavir HKU1 PCR NOT DETECTED Nasal Coronavir NL63 PCR NOT DETECTED Nasal Coronavir OC43 PCR NOT DETECTED Nasal Enterovir/Rhinovir PCR NOT DETECTED Nasal Influenza B PCR NOT DETECTED Nasal Influenza A PCR NOT DETECTED Nasal Parainfluen 1 PCR NOT DETECTED Nasal Parainfluen 2 PCR NOT DETECTED Nasal Parainfluen 3 PCR NOT DETECTED Nasal Parainfluen 4 PCR NOT DETECTED Nasal RSV (PCR) NOT DETECTED Nasal B.pertussis DNA PCR NOT DETECTED Nasal C.pneumoniae (PCR) NOT DETECTED Harjinder Human Metapneumo PCR NOT DETECTED Nasal M.pneumoniae (PCR) NOT DETECTED Nasal SARS-CoV-2 (PCR) DETECTED A Group A Strep Rapid 07/31/23 08:30 WBC RBC Hgb Hct MCV MCH MCHC RDW Plt Count MPV Neut # (Auto) Lymph # (Auto) [place] # (Auto) Eos # (Auto) Baso # (Auto) Absolute Nucleated RBC Nucleated RBC % Sodium Potassium Chloride Carbon Dioxide Anion Gap BUN Creatinine Estimated GFR (MDRD) Glucose Calcium Total Bilirubin AST ALT Alkaline Phosphatase Total Protein Albumin Globulin Albumin/Globulin Ratio Lipase Nasal Adenovirus (PCR) Nasal B. parapertussis DNA (PCR) Nasal Coronavir 229E PCR Nasal Coronavir HKU1 PCR Nasal Coronavir NL63 PCR Nasal Coronavir OC43 PCR Nasal Enterovir/Rhinovir PCR Nasal Influenza B PCR Nasal Influenza A PCR Nasal Parainfluen 1 PCR Nasal Parainfluen 2 PCR Nasal Parainfluen 3 PCR Nasal Parainfluen 4 PCR Nasal RSV (PCR) Nasal B.pertussis DNA PCR Nasal C.pneumoniae (PCR) Harjinder Human Metapneumo PCR Nasal M.pneumoniae (PCR) Nasal SARS-CoV-2 (PCR) Group A Strep Rapid Negative PD Medical Decision Making - ED course Complexity details: reviewed results, re-evaluated patient, d/w patient ED course: Patient presenting for evaluation of elevated blood sugar reading. Has had URI symptoms for the past few days. Vital signs are stable. Fingerstick glucose is in the 300s. He does not have symptoms to suggest DKA. CBC, chemistries were reviewed with hyperglycemia noted. But again does not appear to be in DKA. Patient received IV fluids. Chest x-ray which I reviewed is negative for pneumonia. Patient's respiratory swab is positive for COVID. Patient was counseled regarding his diagnosis. He was offered Paxlovid but declines at this time. He is counseled on continued supportive care as well as concerning symptoms to return for. He is not hypoxic or requiring hospitalization at this time. 1020 - Offered patient Paxlovid. Discussed risks and benefits. Patient declines at this time. Departure - Departure Disposition: Home, Self Care Clinical Impression: COVID-19, Hyperglycemia Condition: Stable Instructions: ED Hyperglycemia Diabetic, ED Viral Syndrome Comments: You have tested positive for COVID-19 this morning. Please quarantine per CDC guidelines. You have declined an antiviral medication called Paxlovid which can reduce complications of COVID leading to hospitalization. Continue with rest, fluids, ibuprofen or acetaminophen as needed for fever. Return to the emergency department with any worsening symptoms. Your blood sugar was elevated in the 300 range. Please have close follow-up with your primary care provider re garding your diabetes. Forms: PCP List Discharge Date/Time: 07/31/23 11:06
[2023-07-31 08:58] LABS: RAPID STREP SCREEN Negative (Negative)
[2023-07-31 09:00] LABS: ALBUMIN 3.8 g/dL (3.2-5.5); ALBUMIN/GLOBULIN RATIO 1.5 (1.0-2.2); BILIRUBIN,TOTAL 0.5 mg/dL (0.2-1.0); CALCIUM 8.5 mg/dL (8.5-10.3); CREATININE 0.9 mg/dL (0.6-1.3); TOTAL PROTEIN 6.4 g/dL (6.4-8.9)
--- NOTE | 2023-07-31 09:32 | XRAY Report ---
PROCEDURE: Chest 1V INDICATIONS: cough/congestion TECHNIQUE: One view of the chest was acquired. COMPARISON: None. FINDINGS: Surgical changes and devices: None. Lungs and pleura: No pleural effusions or pneumothorax. Lungs are clear. Mediastinum: Mediastinal contours appear normal. Heart size is normal. Bones and chest wall: No suspicious bony lesions. Overlying soft tissues appear unremarkable. IMPRESSION: No acute cardiopulmonary process. Reviewed by: Boy Luna MD on 07/31/2023 9:31 AM [facility] Approved by: Boy Luna MD on 07/31/2023 9:31 AM PST Station ID: [id number]
[2023-07-31 10:09] LABS: B. PARAPERTUSSIS- RESP PCR PAN NOT DETECTED; B. PERTUSSIS- RESP PCR PANEL NOT DETECTED; C. PNEUMONIAE- RESP PCR PANEL NOT DETECTED; CORONAVIRUS 229E-RESP PCR NOT DETECTED; CORONAVIRUS HKU1-RESP PCR NOT DETECTED; CORONAVIRUS NL63-RESP PCR NOT DETECTED; CORONAVIRUS OC43-RESP PCR NOT DETECTED; HUMAN METAPNEUMOVIRUS NOT DETECTED; INFLUENZA A- RESP PCR PANEL NOT DETECTED; INFLUENZA B - RESP PCR PANEL NOT DETECTED; M. PNEUMONIAE- RESP PCR PANEL NOT DETECTED; PARAINFLUENZA VIRUS 1 NOT DETECTED; PARAINFLUENZA VIRUS 2 NOT DETECTED; PARAINFLUENZA VIRUS 3 NOT DETECTED; PARAINFLUENZA VIRUS 4 NOT DETECTED; RHINOVIRUS/ENTEROVIRUS NOT DETECTED; RSV- RESP PCR PANEL NOT DETECTED
[2023-07-31 10:12] LABS: SARS-CoV-2 -RESP PCR PANEL DETECTED
[2023-07-31 10:57] VITALS: BP 120/82; O2SAT 96
== END 2023-07-31 11:06 | disposition home or self-care (01) ==
LOC: ED 07:56
DX: E11.65 Type 2 diabetes mellitus with hyperglycemia (principal); Z79.4 Long term (current) use of insulin; U07.1 COVID-19; J06.9 Acute upper respiratory infection, unspecified
CPT/HCPCS: 36415; 80053; 83690; 85025; 87070; 87430; 87633; 93005; 99283; 99284

== ENCOUNTER 2023-09-18 07:22 | Outpatient (CLI) | payer BC, MEDICARE ==
[2023-09-18 07:38] LABS: BASOPHILS # (AUTO) 0.1 10^3/uL (0.0-0.1); BASOPHILS % (AUTO) 0.9 %; EOSINOPHILS # (AUTO) 0.2 10^3/uL (0.0-0.7); EOSINOPHILS % (AUTO) 2.5 %; HCT - HEMATOCRIT 47.2 % (42.0-52.0); HGB - HEMOGLOBIN 15.7 g/dL (14.0-18.0); LYMPHOCYTES # (AUTO) 2.5 10^3/uL (1.5-3.5); LYMPHOCYTES % (AUTO) 38.7 %; MEAN CORPUSCULAR HEMOGLOBIN 30.3 pg (27.0-31.0); MEAN CORPUSCULAR HGB CONC 33.3 g/dL (32.0-36.0); MEAN CORPUSCULAR VOLUME 91.1 fL (80.0-94.0); MONOCYTES # (AUTO) 0.5 10^3/uL (0.0-1.0); MONOCYTES % (AUTO) 7.8 %; NEUTROPHILS # (AUTO) 3.2 10^3/uL (1.5-6.6); NEUTROPHILS % (AUTO) 49.8 %; PLT - PLATELET COUNT 213 10^3/uL (130-450); RED BLOOD COUNT 5.18 10^6/uL (4.70-6.10); RED CELL DISTRIBUTION WIDTH 12.1 % (12.0-15.0); WHITE BLOOD COUNT 6.4 x10^3/uL (4.8-10.8)
[2023-09-18 07:53] LABS: CREATININE,URINE 235.2 mg/dL; MICROALBUM/CREATININE RATIO,UR 11.5 ug/mg (<30.0); MICROALBUMIN,URINE 2.7 mg/dL
[2023-09-18 08:03] LABS: ALBUMIN/GLOBULIN RATIO 1.2 (1.0-2.2); ALKALINE PHOSPHATASE 62 IU/L (42-121); ALT ALANINE AMINOTRANSFERASE 47 IU/L (10-60); AST ASPARTATE AMINOTRANSFERASE 27 IU/L (10-42); BILIRUBIN,TOTAL 0.6 mg/dL (0.2-1.0); BUN - BLOOD UREA NITROGEN 14 mg/dL (6-20); CARBON DIOXIDE - CO2 26 mmol/L (21-32); CHLORIDE 101 mmol/L (101-111); CHOL/HDL RATIO 3.8 (<5.0); CHOLESTEROL 149 mg/dL; GFR - MDRD 74 (>89); GLUCOSE 228 mg/dL (74-104); HDL CHOLESTEROL 39 mg/dL; LDL CHOLESTEROL,CALCULATED 83 mg/dL; LDL/HDL RATIO 2.1 (<3.6); POTASSIUM 4.1 mmol/L (3.5-4.5); SODIUM 134 mmol/L (135-145); TOTAL PROTEIN 7.3 g/dL (6.4-8.9); TRIGLYCERIDES 133 mg/dL (48-352); VLDL CHOLESTEROL 27 mg/dL
[2023-09-18 08:17] LABS: THYROID STIMULATING HORMONE 2.81 uIU/mL (0.34-5.60)
[2023-09-18 10:14] LABS: ESTIMATED AVERAGE GLUCOSE 263 mg/dL (70-100); HEMOGLOBIN A1c% 10.8 % (4.27-6.07)
== END 2023-09-18 07:23 | disposition home or self-care (01) ==
LOC: LAB 07:22
PROVIDERS: ATTEND Family Medicine
DX: E11.65 Type 2 diabetes mellitus with hyperglycemia (principal); F32.A Depression, unspecified; F60.3 Borderline personality disorder; G47.9 Sleep disorder, unspecified; E66.9 Obesity, unspecified; E78.5 Hyperlipidemia, unspecified; G47.30 Sleep apnea, unspecified; I10 Essential (primary) hypertension; Z12.5 Encounter for screening for malignant neoplasm of prostate
CPT/HCPCS: 36415; 80053; 80061; 82043; 82570; 83036; 84443; 85025; G0103; 83721; 84153

== ENCOUNTER 2024-01-17 07:27 | Outpatient (CLI) | payer MEDICARE ==
[2024-01-17 07:52] LABS: POTASSIUM 4.3 mmol/L (3.5-4.5)
[2024-01-17 07:55] LABS: CREATININE,URINE 240.6 mg/dL; MICROALBUM/CREATININE RATIO,UR 7.5 ug/mg (<30.0); MICROALBUMIN,URINE 1.8 mg/dL
[2024-01-17 10:17] LABS: ESTIMATED AVERAGE GLUCOSE 128 mg/dL (70-100); HEMOGLOBIN A1c% 6.1 % (4.27-6.07)
== END 2024-01-17 07:28 | disposition home or self-care (01) ==
LOC: LAB 07:27
PROVIDERS: ATTEND Family Medicine
DX: E11.65 Type 2 diabetes mellitus with hyperglycemia (principal); Z79.4 Long term (current) use of insulin
CPT/HCPCS: 36415; 80048; 82043; 82570; 83036

== ENCOUNTER 2024-04-15 07:56 | Outpatient (CLI) | payer MEDICARE ==
[2024-04-15 08:17] LABS: CREATININE,URINE 214.6 mg/dL; MICROALBUM/CREATININE RATIO,UR 4.7 ug/mg (<30.0)
[2024-04-15 08:20] LABS: CALCIUM 9.2 mg/dL (8.5-10.3); CREATININE 1.1 mg/dL (0.6-1.3); POTASSIUM 4.3 mmol/L (3.5-4.5)
[2024-04-15 10:44] LABS: ESTIMATED AVERAGE GLUCOSE 120 mg/dL (70-100); HEMOGLOBIN A1c% 5.8 % (4.27-6.07)
== END 2024-04-15 07:57 | disposition home or self-care (01) ==
LOC: LAB 07:56
PROVIDERS: ATTEND Family Medicine
DX: E11.65 Type 2 diabetes mellitus with hyperglycemia (principal)
CPT/HCPCS: 36415; 80048; 82043; 82570; 83036